=== PATIENT | male | born 1935 | race Caucasian/White ===

== ENCOUNTER 2017-07-28 03:49 | Emergency (ER) | payer MEDICARE ==
[2017-07-28] MEDS ORDERED: ASPIRIN 81 MG TABLET, CHEWABLE PO ONE (03:52)
[2017-07-28 04:01] LABS: ABSOLUTE BASOPHILS # (AUTO) 0.1 10^3/uL (0.0-0.2); ABSOLUTE EOSINOPHILS # (AUTO) 0.2 10^3/uL (0.0-0.6); ABSOLUTE LYMPHOCYTES (AUTO) 1.7 10^3/uL (0.5-4.7); ABSOLUTE MONOCYTES (AUTO) 0.4 10^3/uL (0.1-1.4); ABSOLUTE NEUT (AUTO) 7.2 10^3/uL (1.7-8.2); BASOPHILS % (AUTO) 1.2 % (0-2); EOSINOPHILS % (AUTO) 1.8 % (0-6); HEMATOCRIT 42.2 % (37.9-51.0); HEMOGLOBIN 14.1 g/dL (13.5-17.0); LYMPHOCYTES % (AUTO) 18.3 % (13-45); MEAN CORPUSCULAR HEMOGLOBIN 31.8 pg (27.0-33.4); MEAN CORPUSCULAR HGB CONC 33.5 g/dL (32.0-36.0); MEAN CORPUSCULAR VOLUME 95 fl (80-97); MONOCYTES % (AUTO) 4.1 % (3-13); PLATELET COUNT 222 10^3/uL (150-450); RED BLOOD COUNT 4.44 10^6/uL (4.35-5.55); RED CELL DISTRIBUTION WIDTH 15.8 % (11.5-14.0); SEGMENTED NEUTROPHILS % (AUTO) 74.6 % (42-78); TOTAL CELLS COUNTED % (AUTO) 100 %; WHITE BLOOD COUNT 9.6 10^3/uL (4.0-10.5)
[2017-07-28 04:14] LABS: ALANINE AMINOTRANSFERASE 91 U/L (21-72); ALBUMIN 3.7 g/dL (3.5-5.0); ALKALINE PHOSPHATASE 142 U/L (38-126); ANION GAP 7 (5-19); ASPARTATE AMINO TRANSFERASE 55 U/L (17-59); BILIRUBIN,DIRECT 0.3 mg/dL (0.0-0.4); BILIRUBIN,TOTAL 0.5 mg/dL (0.2-1.3); BLOOD UREA NITROGEN 21 mg/dL (7-20); CALCIUM 9.1 mg/dL (8.4-10.2); CARBON DIOXIDE 29 mmol/L (22-30); CHLORIDE 110 mmol/L (98-107); CREATINE KINASE 56 U/L (55-170); GLUCOSE 114 mg/dL (75-110); POTASSIUM 4.3 mmol/L (3.6-5.0); TOTAL PROTEIN 6.4 g/dL (6.3-8.2)
[2017-07-28 04:25] LABS: CREATINE KINASE MB 1.35 ng/mL (<4.55); TROPONIN I 0.033 ng/mL
--- NOTE | 2017-07-28 04:35 | RADIOLOGY REPORT (SQ) ---
EXAM DESCRIPTION: CHEST SINGLE VIEW CLINICAL HISTORY: cp COMPARISON: None. FINDINGS: Single frontal view of the chest. Atherosclerotic calcification and tortuosity of thoracic aorta. Heart is not enlarged. Calcified granuloma. No lobar consolidation, pneumothorax or pleural effusion. Left shoulder. Degenerative change of the right shoulder. Upper abdominal soft tissues are unremarkable. IMPRESSION: 1. No acute pulmonary process identified.
--- NOTE | 2017-07-28 05:09 | ER Document Report ---
ED Cardiac - General Chief Complaint: Chest Pain Stated Complaint: CHEST PAIN Time Seen by Provider: 07/28/17 04:17 Notes: Patient is an 82-year-old male comes emergency department by EMS for chief complaint of chest pain, he states that he had pain in his chest 3 different times a night, each time it woke him up, the third time it was significantly worse, felt like pressure in the center of his chest that radiated out to his neck and both arms, he became concerned and his gave him 324 mg of aspirin and he came by EMS. He states he is now chest pain-free. He did state that previously when he was waking up that if he got up and sat in a chair he felt better and then when he laid back he felt slightly worse. He denies nausea or vomiting, he had mild shortness of breath with the pain but none currently. He denies any current symptoms. Past medical history includes hypertension, hyperlipidemia, rheumatoid arthritis, TIA, he is on Aggrenox. He denies personal or family history of MT, he had a negative stress test about 5 years ago. - Related Data Allergies/Adverse Reactions: No Known Allergies Allergy (Unverified 07/28/17 04:44) Past Medical History - General Information source: Patient - Social History Smoking Status: Former Smoker Chew tobacco use (# tins/day): No Frequency of alcohol use: None Drug Abuse: None Lives with: Family Family History: Reviewed & Not Pertinent Patient has suicidal ideation: No Patient has homicidal ideation: No - Past Medical History Cardiac Medical History: Reports: Hx Hypercholesterolemia, Hx Hypertension Endocrine Medical History: Reports: Hx Hypothyroidism Renal/ Medical History: Denies: Hx Peritoneal Dialysis GI Medical History: Reports: Hx Hiatal Hernia Musculoskeltal Medical History: Reports Hx Arthritis - RA - Immunizations Immunizations up to date: Yes Hx Diphtheria, Pertussis, Tetanus Vaccination: Yes Review of Systems - Review of Systems Constitutional: No symptoms reported EENT: No symptoms reported Cardiovascular: See HPI Respiratory: No symptoms reported Gastrointestinal: No symptoms reported Genitourinary: No symptoms reported Male Genitourinary: No symptoms reported Musculoskeletal: No symptoms reported Skin: No symptoms reported Hematologic/Lymphatic: No symptoms reported Neurological/Psychological: No symptoms reported Physical Exam - Vital signs Vitals: Resp Pulse Ox 19 97 07/28/17 03:55 07/28/17 03:55 Interpretation: Normal - General General appearance: Appears well In distress: None - HEENT Head: Normocephalic, Atraumatic Eyes: Normal Pupils: PERRL - Respiratory Respiratory status: No respiratory distress Chest status: Nontender Breath sounds: Normal Chest palpation: Normal - Cardiovascular Rhythm: Regular. No: Tachycardia Heart sounds: Normal auscultation, S1 appreciated, S2 appreciated Murmur: Yes - 1/6 heard best at LSB Normal capillary refill: Yes - Abdominal Inspection: Normal Distension: No distension Bowel sounds: Normal Tenderness: Nontender. No: Tender, Guarding Organomegaly: No organomegaly - Back Back: Normal, Nontender. No: Tender - Extremities General upper extremity: Normal inspection, Nontender, Normal color, Normal ROM , Normal temperature General lower extremity: Normal inspection, Nontender, Normal color, Normal ROM , Normal temperature, Normal weight bearing. No: Helen's sign - Neurological Neuro grossly intact: Yes Cognition: Normal Orientation: AAOx4 Axel Coma Scale Eye Opening: Spontaneous [place] Coma Scale Verbal: Oriented Axel Coma Scale Motor: Obeys Commands Axel Coma Scale Total: 15 Speech: Normal Motor strength normal: LUE, RUE, LLE, RLE Sensory: Normal - Psychological Associated symptoms: Normal affect, Normal mood - Skin Skin Temperature: Warm Skin Moisture: Dry Skin Color: Normal Course - Re-evaluation Re-evalutation: EKG sinus rhythm with no T-wave inversions or ST segment changes in consecutive leads. Normal axis, no bundle branch block, SD interval of 176, QTC of 441. Chest x-ray unremarkable, CBC, chemistry generally unremarkable. Initial troponin is indeterminate at 0.033. Patient's blood pressure is slightly elevated, however he is currently chest pain-free, denies headache, denies any complaints. Discussed with Dr. Fu. Troponin cycled, unfortunately this is doubling, new troponin is 0.08. Discussed with Dr. Fu. Patient is currently chest pain-free, troponin has not reached a migraine she had, however because of doubling troponin with risk factors, age, and story, she recommends transfer to tertiary center for interventional cardiology. I discussed with patient and , patient's investigative shopper is Dr. Marks at [facility]. They request [facility] transfer. 07/28/17 07:00 Spoke with [facility] transfer center, pending call back. 04/06/18 07:[address] Rodríguez, patient will be accepted for transfer. 07/28/17 07:35 Introduced to Laura Diaz PA-C at bedside. - Vital Signs Vital signs: Temp Pulse Resp BP Pulse Ox 18 206/78 H 99 07/28/17 07:01 07/28/17 07:01 07/28/17 07:01 - Laboratory Result Diagrams: 07/28/17 03:30 07/28/17 03:30 Laboratory results interpreted by me: 07/28/17 07/28/17 03:30 03:30 RDW 15.8 H Sodium 146.0 H Chloride 110 H BUN 21 H Glucose 114 H ALT 91 H Alkaline Phosphatase 142 H Discharge - Discharge Clinical Impression: Elevated troponin Chest pain Qualifiers: Chest pain type: unspecified Qualified Code(s): R07.9 - Chest pain, unspecified Condition: Stable Disposition: [facility] Referrals: MEMO ENGLISH III, MD [Primary Care Provider] - Follow up as needed
[2017-07-28] MEDS ORDERED: ATORVASTATIN CALCIUM 10 MG TABLET PO ONE (07:27)
[2017-07-28] MEDS ORDERED: METOPROLOL TARTRATE 25 MG TABLET PO ONE (07:27)
[2017-07-28] MEDS ORDERED: ENOXAPARIN SODIUM INJ 80 MG/0.8 ML DISP.SYRIN SUBCUT SCH (08:00)
--- NOTE | 2017-07-28 10:27 | EKG REPORT ---
SEVERITY:- NORMAL ECG - SINUS RHYTHM : Confirmed by: Chayo Saldana 28-Jul-2017 10:26:50
[2017-07-28 12:48] VITALS: BP 185/76
== END 2017-07-28 12:50 | disposition short-term general hospital (02) ==
LOC: ER 03:49
DX: R79.89 Other specified abnormal findings of blood chemistry (principal); R07.9 Chest pain, unspecified; E03.9 Hypothyroidism, unspecified; I10 Essential (primary) hypertension; Z87.891 Personal history of nicotine dependence
CPT/HCPCS: 93005; 99285; 96372; 36415; 82553; 82550; 85025; 80053; 84484; 71045; 93010; J1650; A9270 ×2

== ENCOUNTER 2018-12-04 01:14 | Inpatient (IN) | payer MEDICARE ==
[2018-12-04] MEDS ORDERED: CEFEPIME INJ 1 GM VIAL IM ONE (01:28)
[2018-12-04] MEDS ORDERED: VANCOMYCIN HCL INJ 1000 MG VIAL IV ONE (01:28)
[2018-12-04] MEDS ORDERED: RINGERS SOLUTION,LACTATED 1,000 ML IV ONE ×2 (01:28→03:00)
--- NOTE | 2018-12-04 01:36 | ER Document Report ---
ED General - General Chief Complaint: Altered Mental Status Stated Complaint: ALTERED MENTAL STATUS Time Seen by Provider: 12/04/18 01:22 Primary Care Provider: MEMO ENGLISH III, MD [Primary Care Provider] - Follow up as needed - HPI Notes: Note history is limited given patient's underlying clinical condition and confusion. All history comes via the patient's . 83-year-old male complicated history including recent CEA done on the right side at outside facility as well as history of bladder CA being treated with intravesicular BCG. Apparently woke up this morning overall felt ill and genera lly weak. According his he has been confused, at times hallucinating about people in the room. EMS was called this evening, noted to have a fever and a prehospital lactate over 6. He was hospitalized couple weeks ago at an outside facility for a CEA. He has had some increased cough. May was used to place BCG in his bladder last week. No falls or injury. No antecedent chest pain. Remainder history is limited by clinical condition - Related Data Allergies/Adverse Reactions: No Known Allergies Allergy (Unverified 07/28/17 04:44) Past Medical History - General Information source: Relative - Social History Smoking Status: Unknown if Ever Smoked Lives with: Spouse/Significant other Family History: Reviewed & Not Pertinent - Medical History Medical History: Other - Includes prior stroke, recent CEA, bladder cancer - Past Medical History Cardiac Medical History: Reports: Hx Hypercholesterolemia, Hx Hypertension Endocrine Medical History: Reports: Hx Hypothyroidism Renal/ Medical History: Denies: Hx Peritoneal Dialysis GI Medical History: Reports: Hx Hiatal Hernia Musculoskeletal Medical History: Reports Hx Arthritis - RA - Immunizations Immunizations up to date: Yes Hx Diphtheria, Pertussis, Tetanus Vaccination: Yes Review of Systems - Review of Systems -: Yes ROS unobtainable due to patient's medical condition Physical Exam - Vital signs Vitals: Temp Pulse Resp BP Pulse Ox 104.4 F H 105 H 29 H 136/85 H 95 12/04/18 01:16 12/04/18 01:16 12/04/18 01:16 12/04/18 01:16 12/04/18 01:16 - Notes Notes: General: Well developed . Chronically ill in appearance HEENT: Normocephalic, atraumatic. Pupils equal round reactive to light. No JVD. Mucosa Chest: No trauma. Respiratory: Air exchange, coarse Cardiac: Regular rhythm. Abdomen: Soft, benign. Nondistended. Nontender. Back: No asymmetry or gross abnormality. Motor: Decreased tone and power, symmetric Neurologic: Eyes open, basic commands, moves all 4 extremities spontaneously. DTRs absent bilaterally. Does not cooperate with finer neurologic testing Vascular: Well perfused. Normal peripheral pulses. Skin: No petechiae or purpura. Course - Re-evaluation Re-evalutation: 12/04/18 01:35 This is an ill-appearing 83-year-old male presents with prehospital fever and elevated lactate likely sepsis syndrome/severe sepsis. Source is unclear at this time. Will initiate resuscitation, broad laboratory evaluation, x-ray, EKG, reevaluate. Patient received Rocephin via EMS. However, he is at substantial risk for healthcare associated infection I will treat him empirically with cefepime and vancomycin. 12/04/18 02:59 Labs reviewed. CBC unremarkable with the exception of neutrophilia and anemia. Most recent comparison is from July 2017 with hemoglobin was over 14. Creatinine is also increased to 1.76 over his baseline from July. Lactate is unremarkable at 2.1. Urinalysis consistent with infection with pyuria and bacteriuria. Chest x-rays evaluated, shows possible patchy infiltrates in the bases bilaterally. Patient is stated covered with broad-spectrum antibiotics to cover for healt hcare associated infection. He meets criteria for urosepsis given his underlying endorgan dysfunction. Hemoccult stools pending. He is admitted to the hospital service for continued evaluation resuscitation. Blood pressures been stable throughout his ED course. Heart rate is decreasing. - Vital Signs Vital signs: Temp Pulse Resp BP Pulse Ox 104.4 F H 105 H 18 125/53 L 99 12/04/18 01:16 12/04/18 01:16 12/04/18 01:54 12/04/18 01:54 12/04/18 01:54 - Laboratory Result Diagrams: 12/04/18 01:20 12/04/18 01:20 Laboratory results interpreted by me: 12/04/18 12/04/18 12/04/18 01:20 01:20 01:45 RBC 2.64 L Hgb 8.0 L Hct 23.5 L RDW 16.6 H Seg Neutrophils % 83.4 H Lymphocytes % 8.9 L Sodium 132.8 L BUN 29 H Creatinine 1.74 H Est GFR ( Amer) 46 L Est GFR (Non-Af Amer) 38 L Glucose 164 H POC Glucose Calcium 8.1 L Total Protein 5.8 L Albumin 2.9 L Urine Protein 30 H Urine Blood SMALL H Ur Leukocyte Esterase LARGE H 12/04/18 01:59 RBC Hgb Hct RDW Seg Neutrophils % Lymphocytes % Sodium BUN Creatinine Est GFR ( Amer) Est GFR (Non-Af Amer) Glucose POC Glucose 173 H Calcium Total Protein Albumin Urine Protein Urine Blood Ur Leukocyte Esterase - EKG Interpretation by Me EKG shows normal: Sinus rhythm, Intervals Rate: Tachycardia Additional EKG results interpreted by me: 12/04/18 01:36 No ischemic changes Critical Care Note - Critical Care Note Total time excluding time spent on procedures (mins): 35 Comments: Inclusive of resuscitation of severe sepsis, frequent re-evaluations, interpret ation of labs and radiograph studies and discussing the case with the admitting doctor. Discharge - Discharge Clinical Impression: Sepsis Qualifiers: Sepsis type: sepsis due to unspecified organism Sepsis acute organ dysfunction status: with acute organ dysfunction Severe sepsis acute organ dysfunction type: acute renal failure Acute renal failure type: unspecified Severe sepsis shock status: without septic shock Qualified Code(s): A41.9 - Sepsis, unspecified organism Condition: Serious Disposition: ADMITTED INPATIENT Admitting Provider: Jimmy (Hospitalist) Unit Admitted: Telemetry Referrals: MEMO ENGLISH III, MD [Primary Care Provider] - Follow up as needed
[2018-12-04 01:44] LABS: ABSOLUTE BASOPHILS # (AUTO) 0.1 10^3/uL (0.0-0.2); ABSOLUTE EOSINOPHILS # (AUTO) 0.1 10^3/uL (0.0-0.6); ABSOLUTE LYMPHOCYTES (AUTO) 0.5 10^3/uL (0.5-4.7); ABSOLUTE MONOCYTES (AUTO) 0.2 10^3/uL (0.1-1.4); ABSOLUTE NEUT (AUTO) 4.4 10^3/uL (1.7-8.2); BASOPHILS % (AUTO) 1.3 % (0-2); EOSINOPHILS % (AUTO) 2.5 % (0-6); HEMATOCRIT 23.5 % (37.9-51.0); LYMPHOCYTES % (AUTO) 8.9 % (13-45); MEAN CORPUSCULAR HEMOGLOBIN 30.2 pg (27.0-33.4); MEAN CORPUSCULAR HGB CONC 33.9 g/dL (32.0-36.0); MEAN CORPUSCULAR VOLUME 89 fl (80-97); MONOCYTES % (AUTO) 3.9 % (3-13); PLATELET COUNT 276 10^3/uL (150-450); RED BLOOD COUNT 2.64 10^6/uL (4.35-5.55); RED CELL DISTRIBUTION WIDTH 16.6 % (11.5-14.0); SEGMENTED NEUTROPHILS % (AUTO) 83.4 % (42-78); TOTAL CELLS COUNTED % (AUTO) 100 %; WHITE BLOOD COUNT 5.3 10^3/uL (4.0-10.5)
[2018-12-04 01:54] LABS: INTERNATIONAL RATION (INR) 1.09; PROTHROMBIN TIME 14.2 SEC (11.4-15.4)
[2018-12-04 02:03] LABS: VENOUS BLOOD BASE EXCESS -0.3 mmol/L; VENOUS BLOOD HCO3 24.2 mmol/L (20-32); VENOUS BLOOD PCO2 39.2 mmHg (35-63); VENOUS BLOOD PH 7.41 (7.30-7.42)
[2018-12-04 02:05] LABS: ALBUMIN 2.9 g/dL (3.5-5.0); ALKALINE PHOSPHATASE 80 U/L (38-126); ANION GAP 10 (5-19); ASPARTATE AMINO TRANSFERASE 58 U/L (17-59); BILIRUBIN,DIRECT 0.3 mg/dL (0.0-0.4); BILIRUBIN,TOTAL 0.8 mg/dL (0.2-1.3); BLOOD UREA NITROGEN 29 mg/dL (7-20); CALCIUM 8.1 mg/dL (8.4-10.2); CARBON DIOXIDE 25 mmol/L (22-30); CHLORIDE 98 mmol/L (98-107); GLUCOSE 164 mg/dL (75-110); POTASSIUM 3.9 mmol/L (3.6-5.0); TOTAL PROTEIN 5.8 g/dL (6.3-8.2)
[2018-12-04 02:08] LABS: APPEARANCE,URINE SLIGHTLY-CLOUDY; BILIRUBIN,URINE NEGATIVE (NEGATIVE); COLOR,URINE YELLOW; GLUCOSE, URINE NEGATIVE (NEGATIVE); KETONES,URINE NEGATIVE (NEGATIVE); LEUKOCYTE ESTERASE,URINE LARGE (NEGATIVE); NITRITE,URINE NEGATIVE (NEGATIVE); PROTEIN,URINE 30 mg/dL (NEGATIVE); URINE SPECIFIC GRAVITY 1.014; UROBILINOGEN,URINE NEGATIVE mg/dL (<2.0)
[2018-12-04] MEDS ORDERED: ACETAMINOPHEN 325 MG TABLET PO ONE (02:12)
--- NOTE | 2018-12-04 02:29 | RADIOLOGY REPORT (SQ) ---
EXAM DESCRIPTION: XR CHEST 1 VIEW COMPLETED DATE/TME: 12/04/2018 01:29 CLINICAL HISTORY: 83 years, Male, Fever COMPARISON: None. NUMBER OF VIEWS: TECHNIQUE: LIMITATIONS: None. FINDINGS: There may be patchy infiltrate at the lung bases bilaterally, raising the possibility of pneumonia. There is emphysema. The heart is normal in size. Pulmonary vascularity appears normal. There is evidence of prior thoracic surgery. There are atherosclerotic changes and tortuosity of the thoracic aorta. IMPRESSION: Possible bibasilar pneumonia. Emphysema. copyright 2010 [employer]- All Rights Reserved
[2018-12-04] MEDS ORDERED: AZITHROMYCIN INJ 500 MG VIAL IV ONE (02:31)
[2018-12-04] MEDS ORDERED: ONDANSETRON HCL INJ/PF 4 MG/2 ML SDV IV PRN (03:03)
[2018-12-04] MEDS ORDERED: MAG HYDROX/AL HYDROX/SIMETH SUSP 30 ML UDCUP PO PRN (03:03)
[2018-12-04] MEDS ORDERED: MAGNESIUM HYDROXIDE SUSP 30 ML UDCUP PO PRN (03:03)
[2018-12-04] MEDS ORDERED: DEXTROSE 40% GEL 15 GM TUBE PO PRN ×2 (03:49)
[2018-12-04] MEDS ORDERED: DEXTROSE 50%-WATER 25 GM/50 ML DISP.SYRIN IV PRN ×2 (03:49)
[2018-12-04] MEDS ORDERED: GLUCAGON,HUMAN RECOMB 1 MG INJ IM PRN (03:49)
[2018-12-04] MEDS ORDERED: LORAZEPAM INJ 2 MG/1 ML VIAL IV PRN (03:54)
[2018-12-04] MEDS ORDERED: CHLORPROMAZINE HCL INJ 25 MG/1 ML AMPULE IV PRN (03:54)
[2018-12-04 04:57] LABS: CREATINE KINASE MB 1.3 ng/mL (<4.55)
[2018-12-04 05:09] LABS: TROPONIN I 0.24 ng/mL
[2018-12-04] MEDS ORDERED: MEROPENEM 1 GM VIAL IV PRN (06:00)
[2018-12-04] MEDS ORDERED: MEROPENEM 1 GM VIAL ONE (06:05)
[2018-12-04] MEDS ORDERED: CHLORPROMAZINE HCL INJ 25 MG/1 ML AMPULE ONE (06:06)
--- NOTE | 2018-12-04 06:09 | PDOC H&P ---
History of Present Illness Admission Date/PCP: 12/04/2018 03:11 MEMO ENGLISH III, MD Patient complains of: Fever History of Present Illness: SANTY QUEZADA is a 83 year old male who presented to the emergency room with acute fever. Patient's indicates that he woke up feeling weak and suffering from malaise on the morning of 12/03/2018. He continued not feeling well throughout the day and became gradually more confused, experienced occasional coughing and and seemed to be hallucinating by the evening. EMS was called and found patient to have a fever of 102.8 F and a prehospital rapid lactic acid level of greater than 6. The patient is confused/delirious secondary to his acute illness and unable to participate in his medical history at this time. The denies prior similar episodes. She offers the recent history of surgery performed in [facility] (right carotid endarterectomy) approximately 2 weeks ago and a treatment for bladder cancer involving the installation of BCG in his bladder via May catheter last week as to possible sources of infection that may have contributed to his current status. In the emergency room he was found to have a normal white blood count, a normal serum lactate, an anemia with a hemoglobin of 8.0, an elevated creatinine at 1.74 (approximately double his baseline), a urinalysis consistent with bacterial cystitis and a chest x-ray showing a possible pneumonia. Patient was subsequently admitted to the hospital for further evaluation treatment. Past Medical History Cardiac Medical History: Reports: Atrial Fibrillation, Coronary Artery Disease, Hyperlipidema, Hypertension, Peripheral Vascular Disease Denies: Myocardial Infarction Pulmonary Medical History: Denies: Asthma, Chronic Obstructive Pulmonary Disease (COPD) EENT Medical History: Denies: Cataracts, Ears - Hearing aids, Nose - Allergic rhinitis Neurological Medical History: Reports: Ischemic CVA Denies: Hemorrhagic CVA, Multiple Sclerosis, Seizures Endocrine Medical History: Reports: Hypothyroidism Denies: Diabetes Mellitus Type 1, Diabetes Mellitus Type 2, Hyperthyroidism, Obesity Renal/ Medical History: Reports: Other - Urinary bladder cancer, benign prostatic hypertrophy Denies: Chronic Kidney Disease, Nephrolithiasis Malignancy Medical History: Reports: Other - Urinary bladder cancer GI Medical History: Reports: Hiatal Hernia Denies: Cirrhosis, Crohn's Disease, Diverticulitis, Hepatitis, Ulcerative Colitis Musculoskeltal Medical History: Reports: Arthritis - RA Denies: Fibromyalgia, Gout Skin Medical History: Denies: Eczema, Psoriasis Psychiatric Medical History: Reports: Tobacco Dependency Denies: Alcohol Dependency, Substance Abuse Traumatic Medical History: Reports: None Hematology: Reports: Bleeding Tendencies - Subcutaneous bleeding and bruising on Plavix Denies: Anemia Infectious Medical History: Reports: None Past Surgical History Past Surgical History: Reports: Cardiac Catheterization, Carotid Endarterectomy, Coronary Artery Bypass Graft - With ablation for correction of atrial fibril lation, Orthopedic Surgery - Surgery for spinal stenosis, Other - Bladder surgery for cancer plus TURP Social History Information Source: Relative Lives with: Spouse/Significant other Smoking Status: Former Smoker Frequency of Alcohol Use: None Hx Recreational Drug Use: No Drugs: None Hx Prescription Drug Abuse: No - Advance Directive Resuscitation Status: Full Code Surrogate healthcare decision maker:: Debbie Quezada Family History Family History: Arthritis, CAD, Hypertension, Other - Alzheimer's disease. denies: DM, Malignancy Parental Family History Reviewed: Yes Children Family History Reviewed: No Sibling(s) Family History Reviewed.: Yes Medication/Allergy Allergies/Adverse Reactions: Sulfa (Sulfonamide Antibiotics) Allergy (Verified 12/04/18 05:23) Review of Systems ROS unobtainable: Due to mental status - Confusion/delirium secondary to fever and acute illness Physical Exam Vital Signs: Temp Pulse Resp BP Pulse Ox 104.4 F H 105 H 18 125/53 L 99 12/04/18 01:16 12/04/18 01:16 12/04/18 01:54 12/04/18 01:54 12/04/18 01:54 Intake & Output 12/02/18 12/03/18 12/04/18 23:59 23:59 23:59 Weight 65.2 kg General appearance: PRESENT: no acute distress, other - Confused and delirious Head exam: PRESENT: atraumatic, normocephalic Eye exam: PRESENT: conjunctiva pink. ABSENT: conjunctival injection, scleral icterus Ear exam: PRESENT: normal external ear exam. ABSENT: bleeding, drainage Mouth exam: PRESENT: dry mucosa, neck supple Neck exam: ABSENT: thyromegaly, tracheal deviation Respiratory exam: PRESENT: clear to auscultation estela, symmetrical, unlabored Cardiovascular exam: PRESENT: RRR. ABSENT: clicks, gallop, rubs Pulses: PRESENT: normal radial pulses, normal dorsalis pedis pul Vascular exam: PRESENT: normal capillary refill. ABSENT: pallor GI/Abdominal exam: PRESENT: normal bowel sounds, soft. ABSENT: tenderness Rectal exam: PRESENT: deferred Extremities exam: ABSENT: joint swelling, pedal edema Musculoskeletal exam: ABSENT: deformity, dislocation, tenderness Neurological exam: PRESENT: altered - Confused and delirious, CN II-XII grossly intact - Limited exam. ABSENT: motor sensory deficit - To gross exam Psychiatric exam: PRESENT: other - Confused and delirious Skin exam: PRESENT: dry, intact, warm. ABSENT: jaundice, rash, urticaria Results Laboratory Results: 12/04/18 01:20 12/04/18 01:20 12/04/18 12/04/18 12/04/18 01:20 01:20 01:20 WBC 5.3 RBC 2.64 L Hgb 8.0 L Hct 23.5 L MCV 89 MCH 30.2 MCHC 33.9 RDW 16.6 H Plt Count 276 Seg Neutrophils % 83.4 H Lymphocytes % 8.9 L Monocytes % 3.9 Eosinophils % 2.5 Basophils % 1.3 Absolute Neutrophils 4.4 Absolute Lymphocytes 0.5 Absolute Monocytes 0.2 Absolute Eosinophils 0.1 Absolute Basophils 0.1 VBG pH VBG pCO2 VBG HCO3 VBG Base Excess Sodium 132.8 L Potassium 3.9 Chloride 98 Carbon Dioxide 25 Anion Gap 10 BUN 29 H Creatinine 1.74 H Est GFR ( Amer) 46 L Est GFR (Non-Af Amer) 38 L Glucose 164 H Lactic Acid 2.1 Calcium 8.1 L Total Bilirubin 0.8 AST 58 Alkaline Phosphatase 80 Total Protein 5.8 L Albumin 2.9 L Urine Color Urine Appearance Urine pH Ur Specific [place] Urine Protein Urine Glucose (UA) Urine Ketones Urine Blood Urine Nitrite Ur Leukocyte Esterase Urine WBC (Auto) Urine RBC (Auto) 12/04/18 12/04/18 01:20 01:45 WBC RBC Hgb Hct MCV MCH MCHC RDW Plt Count Seg Neutrophils % Lymphocytes % Monocytes % Eosinophils % Basophils % Absolute Neutrophils Absolute Lymphocytes Absolute Monocytes Absolute Eosinophils Absolute Basophils VBG pH 7.41 VBG pCO2 39.2 VBG HCO3 24.2 VBG Base Excess -0.3 Sodium Potassium Chloride Carbon Dioxide Anion Gap BUN Creatinine Est GFR ( Amer) Est GFR (Non-Af Amer) Glucose Lactic Acid Calcium Total Bilirubin AST Alkaline Phosphatase Total Protein Albumin Urine Color YELLOW Urine Appearance SLIGHTLY-CLOUDY Urine pH 5.0 Ur Specific [place] 1.014 Urine Protein 30 H Urine Glucose (UA) NEGATIVE Urine Ketones NEGATIVE Urine Blood SMALL H Urine Nitrite NEGATIVE Ur Leukocyte Esterase LARGE H Urine WBC (Auto) >182 Urine RBC (Auto) 7 Impressions: Chest X-Ray 12/04/18 01:29 IMPRESSION: Possible bibasilar pneumonia. Emphysema. copyright 2010 [employer]- All Rights Reserved Assessment and Plan - Diagnosis (1) SIRS (systemic inflammatory response syndrome) Is this a current diagnosis for this admission?: Yes Plan: Patient has tachycardia and fever with a source of infection in the urinary tract. His initial lactic acid is normal and he shows no evidence of shock. His initial white blood count is normal. Patient will be observed closely for possible signs of sepsis during his course of therapy. Blood and urine cultures are pending. Antibiotic therapy will be broad-spectrum for sepsis coverage utilizing vancomycin, azithromycin and meropenem. Daily CBCs, metabolic profiles and magnesium levels will be obtained. (2) Urinary tract infection Qualifiers: Urinary tract infection type: acute cystitis Hematuria presence: without hematuria Qualified Code(s): N30.00 - Acute cystitis without hematuria Is this a current diagnosis for this admission?: Yes Plan: Patient's urinary tract infection will be treated with meropenem 1 g IV every 8 hours until culture results are available to allow for organisms specific directed therapy with a narrower scope. (3) Acute nontraumatic kidney injury Is this a current diagnosis for this admission?: Yes Plan: Patient be treated with IV fluid and supportive as well as symptomatic cares. Daily metabolic profiles will be monitored as well as magnesium levels. (4) Fever Qualifiers: Fever type: unspecified Qualified Code(s): R50.9 - Fever, unspecified Is this a current diagnosis for this admission?: Yes Plan: Patient's fever will be treated with Tylenol 650 mg p.o. every 4 hours on a as needed basis for temperature greater than 101.5 F. (5) Acute delirium Is this a current diagnosis for this admission?: Yes Plan: Patient's delirium will be treated with symptomatic and supportive cares. He will receive IV fluids and fever will be controlled with Tylenol. His infection be treated with antibiotic therapy and he will have available Ativan 0.5 mg IV every 4 hours on a as needed basis for anxiety and Thorazine 25 mg IV every 8 hours on a as needed basis for severe restlessness, agitation or hallucinations. - Time Time Spent with patient: 25-34 minutes Medications reviewed and adjusted accordingly: Yes Anticipated discharge: Home - Inpatient Certification Based on my medical assessment, after consideration of the patient's comorbidities, presenting symptoms, or acuity I expect that the services needed warrant INPATIENT care.: Yes I certify that my determination is in accordance with my understanding of Medicare's requirements for reasonable and necessary INPATIENT services [42 CFR 412.3e].: Yes Medical Necessity: Need Close Monitoring Due to Risk of Patient Decompensation, Need For Continuous Telemetry Monitoring, Need for IV Antibiotics, Risk of Complication if Not Cared For in Hospital
--- NOTE | 2018-12-04 06:11 | ADVANCED CARE ---
- Diagnosis (1) SIRS (systemic inflammatory response syndrome) Diagnosis Current: Yes (2) Urinary tract infection Diagnosis Current: Yes (3) Acute nontraumatic kidney injury Diagnosis Current: Yes (4) Fever Diagnosis Current: Yes (5) Acute delirium Diagnosis Current: Yes Attendance: Myself, the patient and his Debbie Quezada. Resuscitation Status: Full Code Discussion: Patient's indicates that he wishes to continue to be a full code resuscitation status patient at this time. Patient has named Debbie Quezada as his designated surrogate medical decision-maker. Care Planning Goals: 1. Patient is full CODE STATUS for this hospitalization. 2. Debbie Quezada is the patient's designated surrogate medical decision- maker. Document(s) Completed: Following information will be entered into the patient's permanent medical record via this EMR entry: 1. Patient is full CODE STATUS for this hospitalization. 2. Debbie Quezada is the patient's designated surrogate medical decision- maker. Time Spent: 18 minutes
[2018-12-04] MEDS: MEROPENEM 1 GM in NORMAL SALINE 50 ML IV SCH ×2 (06:49→14:10)
[2018-12-04] MEDS: RINGERS SOLUTION,LACTATED 1,000 ML IV PRN ×3 (06:50→23:12)
[2018-12-04] MEDS: HEPARIN SOD (PORCINE) 5,000 UNIT/ML 1 ML VIAL SUBCUT SCH ×2 (06:50→14:10)
[2018-12-04 06:52] LABS: FREE T3 2.11 pg/mL (2.77-5.27); FREE T4 (FREE THYROXINE) 1.66 ng/dL (0.78-2.19)
[2018-12-04] MEDS: INSULIN LISPRO 100 UNIT/ML 3 ML VIAL SUBCUT SCH ×4 (08:00→21:26)
[2018-12-04 08:14] LABS: CREATINE KINASE MB 3.46 ng/mL (<4.55)
[2018-12-04 08:19] LABS: TROPONIN I 1.84 ng/mL
[2018-12-04] MEDS: ACETYLCYSTEINE 20% SOLN 800 MG/4 ML VIAL.NEB NEB SCH ×2 (08:45→20:20)
[2018-12-04] MEDS: LEVALBUTEROL HCL NEB 1.25 MG/3 ML AMPUL NEB SCH ×2 (08:46→16:12)
--- NOTE | 2018-12-04 09:36 | EKG REPORT ---
SEVERITY:- ABNORMAL ECG - SINUS TACHYCARDIA ARTIFACTS NOTED : Confirmed by: Chayo Saldana 04-Dec-2018 09:35:29
[2018-12-04] MEDS: DOCUSATE SODIUM 100 MG CAPSULE PO SCH ×2 (09:38→17:21)
[2018-12-04] MEDS: FAMOTIDINE 20 MG TABLET PO SCH ×2 (09:38→21:30)
[2018-12-04] MEDS ORDERED: CEFEPIME 1 GM/D5W RTU 1 GM/50 ML RTUPB IV SCH (10:00)
[2018-12-04] MEDS ORDERED: VANCOMYCIN HCL INJ 1000 MG VIAL IV SCH (10:00)
--- NOTE | 2018-12-04 11:29 | EKG REPORT ---
SEVERITY:- ABNORMAL ECG - SINUS TACHYCARDIA ARTIFACTS NOTED : Confirmed on behalf of: Chayo Saldana 04-Dec-2018 11:29:29
--- NOTE | 2018-12-04 14:38 | RADIOLOGY REPORT (SQ) ---
EXAM DESCRIPTION: CT CHEST WITHOUT COMPLETED DATE/TIME: 12/04/2018 1:40 pm REASON FOR STUDY: further assess infiltrates on CXR,PNA vs ?congest COMPARISON: None. TECHNIQUE: CT scan performed of the chest without intravenous contrast. Images reviewed with lung, soft tissue and bone windows. Reconstructed coronal and sagittal MPR images reviewed. All images st ored on PACS. All CT scanners at this facility use dose modulation, iterative reconstruction, and/or weight based d osing when appropriate to reduce radiation dose to as low as reasonably achievable (ALARA). [facility]: Dose Right [facility]: CareDose [facility]: Dose Right [facility]: Teradose 4D [facility]: Smart [employer] RADIATION DOSE: CT Rad equipment meets quality standard of care and radiation dose reduction techniq ues were employed. CTDIvol: 10.8 mGy. DLP: 395 mGy-cm. mGy. LIMITATIONS: No technical limitations. FINDINGS: LUNGS AND PLEURA: Minimal pleural effusions. Ground-glass opacification in both lungs to a moderate degree. There is increased opacification in the right lung posteriorly on image 48. Ther e is mild pulmonary fibrosis. HILAR AND MEDIASTINAL STRUCTURES: There are nonspecific mediastinal nodes. No true adenopathy. HEART AND VASCULAR STRUCTURES: No aneurysm. No pericardial effusion. Prior CABG. UPPER ABDOMEN: No significant findings. Limited exam. THYROID AND OTHER SOFT TISSUES: No masses. No adenopathy. BONES: Mild scoliosis. HARDWARE: Sternotomy wires. Heart valve. OTHER: No other significant findings. IMPRESSION: Pulmonary fibrosis. UIP pattern. Ground-glass opacification in each lung suggesting ch ronic interstitial changes. Cannot exclude limited pneumonia in the right lower lobe. Small pleural effusions. TECHNICAL DOCUMENTATION: JOB ID: [id number] Quality ID # [id number]: Final reports with documentation of one or more dose reduction techniques (e.g., Au tomated exposure control, adjustment of the mA and/or kV according to patient size, use of iterative reconstruction technique) 2010 [employer]- All Rights Reserved Reading location - IP/workstation name: [email or web address]
[2018-12-04 15:13] LABS: ANION GAP 5 (5-19); BLOOD UREA NITROGEN 23 mg/dL (7-20); CARBON DIOXIDE 29 mmol/L (22-30); CHLORIDE 102 mmol/L (98-107); GLUCOSE 98 mg/dL (75-110); POTASSIUM 3.9 mmol/L (3.6-5.0)
[2018-12-04 15:46] LABS: CREATINE KINASE MB 4.71 ng/mL (<4.55); TROPONIN I 1.28 ng/mL
[2018-12-04] MEDS: ACETAMINOPHEN 325 MG TABLET PO PRN (19:00)
[2018-12-04] MEDS: LEVALBUTEROL HCL NEB 0.63 MG/3 ML AMPUL NEB PRN (20:21)
[2018-12-04] MEDS: CEFEPIME 1 GM/D5W RTU 1 GM/50 ML RTUPB IV SCH (21:29)
[2018-12-04] MEDS: ATORVASTATIN CALCIUM 40 MG TABLET PO SCH (21:29)
[2018-12-04] MEDS: ASPIRIN 81 MG TABLET, CHEWABLE PO SCH (21:31)
[2018-12-04] MEDS ORDERED: ENOXAPARIN SODIUM INJ 40 MG/0.4 ML DISP.SYRIN SUBCUT SCH (22:00)
[2018-12-04] MEDS: VANCOMYCIN HCL 1,250 MG in DEXTROSE 5%-WATER 250 ML IV SCH (23:15)
[2018-12-05] MEDS: LEVALBUTEROL HCL NEB 1.25 MG/3 ML AMPUL NEB SCH ×3 (00:23→15:51)
[2018-12-05] MEDS: LEVALBUTEROL HCL NEB 0.63 MG/3 ML AMPUL NEB PRN ×2 (02:37→20:26)
[2018-12-05] MEDS ORDERED: AZITHROMYCIN INJ 500 MG VIAL IV SCH (06:00)
[2018-12-05 07:48] LABS: HEMATOCRIT 20.9 % (37.9-51.0); MEAN CORPUSCULAR HEMOGLOBIN 29.9 pg (27.0-33.4); MEAN CORPUSCULAR HGB CONC 33.9 g/dL (32.0-36.0); MEAN CORPUSCULAR VOLUME 88 fl (80-97); PLATELET COUNT 240 10^3/uL (150-450); RED BLOOD COUNT 2.37 10^6/uL (4.35-5.55); RED CELL DISTRIBUTION WIDTH 16.7 % (11.5-14.0); RETICULOCYTE COUNT (AUTO) 5.92 % (0.66-2.85); WHITE BLOOD COUNT 4.9 10^3/uL (4.0-10.5)
[2018-12-05 07:50] LABS: HEMOGLOBIN 7.1 g/dL (13.5-17.0)
[2018-12-05] MEDS ORDERED: AZITHROMYCIN 500 MG in DEXTROSE 5%-WATER 250 ML IV SCH (08:00)
[2018-12-05 08:07] LABS: ANION GAP 7 (5-19); BLOOD UREA NITROGEN 21 mg/dL (7-20); CARBON DIOXIDE 28 mmol/L (22-30); CHLORIDE 100 mmol/L (98-107); GLUCOSE 92 mg/dL (75-110); IRON(TIBC) 15.8 ug/dL (49-181); POTASSIUM 4.6 mmol/L (3.6-5.0)
[2018-12-05] MEDS: ACETYLCYSTEINE 20% SOLN 800 MG/4 ML VIAL.NEB NEB SCH ×2 (08:07→20:26)
[2018-12-05] MEDS: INSULIN LISPRO 100 UNIT/ML 3 ML VIAL SUBCUT SCH ×4 (08:08→21:04)
[2018-12-05] MEDS: FAMOTIDINE 20 MG TABLET PO SCH ×2 (09:59→21:05)
[2018-12-05] MEDS: ASPIRIN 81 MG TABLET, CHEWABLE PO SCH (09:59)
[2018-12-05] MEDS: DOCUSATE SODIUM 100 MG CAPSULE PO SCH ×2 (09:59→17:33)
[2018-12-05] MEDS ORDERED: ENOXAPARIN SODIUM INJ 40 MG/0.4 ML DISP.SYRIN SUBCUT SCH (10:00)
[2018-12-05] MEDS: CEFEPIME 1 GM/D5W RTU 1 GM/50 ML RTUPB IV SCH ×2 (10:00→21:05)
--- NOTE | 2018-12-05 11:24 | ST Inp Modified Barium Swallow ---
Medical Diagnosis - Medical Diagnoses Medical Diagnosis Description & ICD-10 Code(s): Systemic Inflammatory Response Syndrome, UTI, Fever, Acute Delirium [place] [facility] [place]: 12/05/18 - History History Obtained From: Patient - Patient reports distant memory of PNA during time in [employer]. Denies previous troble swallowing or GERD. -: Medical - Per EMR: Patient admitted to hospital with acute fever, feeling weak, suffering from malaise, becoming confused, and coughing. Admitted with diagnosis of Systemic Inflammatory Response Syndrome, UTI, Acute Nontraumatic Kidney Injury, Fever, and Acute Delirium. Past medical history includes A-Fib, Hypertension, Coronary Artery Disease, COPD, Hiatal Hernia, and Ischemic CVA. Past cardiac surgeries and surgery for spinal stenosis. CN II-XII grossly intact during neurological exam. Currently on regular diet. Chest X-Ray (12/04) revealing bilateral lung infiltrates raising the possibility of PNA. Chest CT (12/04) cannot exclude PNA. Medications: Medications Reviewed - yes - Subjective Current Nutritional Means: PO Current PO Diet: Regular Current Symptoms: other - chest imaging suggesting PNA Pain: denies pain - Objective Assessment: Upright - Food Trials Food Trials Used: Thin liquids, Steward thick liquids, Pureed, Regular The Patient: Was Able to Self Feed, via cup, via spoon - Assessment Labial Function: Within Normal Limits Lingual Function: Within Normal Limits Mandibular Function: Within Normal Limits Velo-Pharyngeal Function: Not assessed - Pharyngeal Stage Initiation of Pharyngeal Stage: Normal Reduced Tongue Base Retraction: Yes Pre-Swallowing Pooling in Valleculae: None Pre-Swallowing Pooling in Pyriforms: None Multiple Swallows With: Effective - to reduce residue Post Swallow Residuals in Valleculae: None - thin liquid, Mild - nectar thick liquids and puree, Moderate - regular solids Post Swallow Residuals in Pyriforms: None Post Swallow Residuals: throughout pharynx - following regular solid trials Pahryngeal Stage Comments: Patient presents with moderate oropharyngeal dysphagia characterized by reduced base of tongue retraction and moderate vallecular residue with regular solids leading to aspiration of mixed residuals. Solid residue reduced with verbal cue for dry swallow, but patient was inconsistently able to follow command. Aspiration occurred x1, when thin liquid combined with residue from solid. Patient did have delayed cough response to aspiration. Steward thick liquid was penetrated x1 with initial large sip, but all other nectar thick trials completed without airway compromise. Given incr eased residue with regular solids and patients increased control during swallow with nectar thick liquids, recommend chopped solids and nectar thick liquid diet with aspiration precautions (sitting upright, small bites/sips, and slow rate). Patients current dysphagia is likely related to age related changes coupled with past CVA and current de-conditioned state. Therefore, recommend follow-up speech therapy to ensure compliance with diet, aspiration precautions, and ability to upgrade diet. - Impression/Summary Laryngeal Penetration: Yes, Silent, during swallow - slight penetration with inital large sip of nectar thick liquid; however, no further penetration with nectar with controlled sips Tracheal Aspiration: yes - aspiration x1 with thin liquid trial following regular solid. Thin liquid could con be contained in vallecula secondary to residual solid residue leading to aspiration with delayed cough response., delayed cough, during swallow Productive Cough: Yes - delayed following aspiration Patient Presents With: Oral-Pharyngeal dysph. Risk of Aspiration: Moderate - Recommendations NPO: no Solid Diet Recommendations: Chopped Meat Liquid Diet Recommendations: Steward-Thick Strict Aspitarion Precautions: Yes - Small bites, slow rate,upright Dysphagia Therapy with [employer]: Yes, Inpatient Recommended Techniques: Fully Upright During Meal, Small Bites and Sips Supervision: Distant - intermittent supervision for compliance with aspiration precautions - Time Total Time: 26 Total Timed Minutes: 26
--- NOTE | 2018-12-05 14:03 | PDOC CONSULTATION ---
Consultation Consult Date: 12/05/18 Attending physician:: BRANDY SEE Provider Consulted: KITTY MIRANDA Consult reason:: Sepsis altered mental status History of Present Illness Admission Date/PCP: 12/04/18 03:19 MEMO ENGLISH III, MD History of Present Illness: SANTY COVARRUBIAS is a 83 year old male presented with his spouse to the emergency room after 2 days of fever and malaise at the time of presentation his temperature was 102.8 and he was very much confused status post a hospitalization in [facility] for carotid endarterectomy and apparently has chronic UTIs. He admits to smoking per his spouse approximately 1 pack a day for 42 years but has not smoked in the last 20 years Past Medical History Cardiac Medical History: Reports: Atrial Fibrillation, Coronary Artery Disease, Hyperlipidema, Hypertension, Peripheral Vascular Disease Denies: Myocardial Infarction Pulmonary Medical History: Denies: Asthma, Chronic Obstructive Pulmonary Disease (COPD) EENT Medical History: Denies: Cataracts, Ears - Hearing aids, Nose - Allergic rhinitis Neurological Medical History: Reports: Ischemic CVA Denies: Hemorrhagic CVA, Multiple Sclerosis, Seizures Endocrine Medical History: Reports: Hypothyroidism Denies: Diabetes Mellitus Type 1, Diabetes Mellitus Type 2, Hyperthyroidism, Obesity Renal/ Medical History: Reports: Other - Urinary bladder cancer, benign prostatic hypertrophy Denies: Chronic Kidney Disease, Nephrolithiasis Malignancy Medical History: Reports: Other - Urinary bladder cancer GI Medical History: Reports: Hiatal Hernia Denies: Cirrhosis, Crohn's Disease, Diverticulitis, Hepatitis, Ulcerative C olitis Musculoskeltal Medical History: Reports: Arthritis - RA Denies: Fibromyalgia, Gout Skin Medical History: Denies: Eczema, Psoriasis Psychiatric Medical History: Reports: Tobacco Dependency Denies: Alcohol Dependency, Depression, Substance Abuse Traumatic Medical History: Reports: None Hematology: Reports: Bleeding Tendencies - Subcutaneous bleeding and bruising on Plavix Denies: Anemia Infectious Medical History: Reports: None Past Surgical History Past Surgical History: Reports: Cardiac Catheterization, Carotid Endarterectomy, Coronary Artery Bypass Graft - With ablation for correction of atrial fibrillation, Orthopedic Surgery - Surgery for spinal stenosis, Other - Bladder surgery for cancer plus TURP Social History Information Source: Patient, [facility] Records Lives with: Spouse/Significant other Smoking Status: Former Smoker Cigarettes Packs Per Day: 1 Number of Years Smokin Last Time Smoked: 20 Passive smoke exposure as: Both Frequency of Alcohol Use: None Hx Recreational Drug Use: No Drugs: None Hx Prescription Drug Abuse: No Do you have pets?: No Have you had any respiratory illnesses as a child?: No Have you been exposed to any sick contacts recently?: No - Advance Directive Resuscitation Status: Full Code Family History Family History: Arthritis, CAD, Hypertension, Other - Alzheimer's disease. denies: DM, Malignancy Parental Family History Reviewed: Yes Children Family History Reviewed: Yes Sibling(s) Family History Reviewed.: Yes Medication/Allergy Home Medications: Carisoprodol [Soma] 350 mg PO TID 12/04/18 Citalopram Hydrobromide [Celexa 10 mg Tablet] 10 mg PO DAILY 12/04/18 Clopidogrel Bisulfate [Plavix 75 mg Tablet] 75 mg PO DAILY 12/04/18 Folic Acid [Folvite 1 mg Tablet] 1 mg PO DAILY 12/04/18 Levothyroxine Sodium [Synthroid] 125 mcg PO Q6AM 12/04/18 Lisinopril/Hydrochlorothiazide [Lisinopril-Hctz 20-12.5 mg Tab] 1 each PO DAILY 12/04/18 Methotrexate Sodium [Rheumatrex 2.5 mg Tablet] 2.5 mg PO .WEEKLY 12/04/18 Metoprolol Succinate [Toprol XL 100 mg Tablet] 100 mg PO DAILY 12/04/18 Allergies/Adverse Reactions: Sulfa (Sulfonamide Antibiotics) Allergy (Verified 12/04/18 05:23) Review of Systems All systems: reviewed and no additional remarkable complaints except as stated Physical Exam Vital Signs: Temp Pulse Resp BP Pulse Ox 99.5 F 110 H 20 128/57 H 91 L 12/05/18 08:00 12/05/18 08:00 12/05/18 08:00 12/05/18 08:00 12/05/18 08:00 Intake & Output 12/04/18 12/05/18 12/06/18 06:59 06:59 06:59 Intake Total 1000 3833 1000 Output Total 100 2100 Balance 900 1733 1000 Weight 69.7 kg 69.9 kg General appearance: PRESENT: no acute distress, cooperative, disheveled, hard of hearing Head exam: PRESENT: atraumatic, normocephalic Eye exam: PRESENT: conjunctiva pale, EOMI. ABSENT: nystagmus, periorbital swelling, scleral icterus Mouth exam: PRESENT: dry mucosa, neck supple, tongue midline Neck exam: ABSENT: carotid bruit, full ROM, JVD, lymphadenopathy, meningismus, tenderness, thyromegaly, tracheal deviation, tracheostomy, other Respiratory exam: PRESENT: decreased breath sounds, prolonged expiratory phas, rhonchi, unlabored. ABSENT: rales, retraction, stridor, symmetrical, tachypnea Cardiovascular exam: PRESENT: irregular rhythm Pulses: PRESENT: normal radial pulses GI/Abdominal exam: PRESENT: soft. ABSENT: distended, guarding, mass, tenderness Extremities exam: ABSENT: calf tenderness, clubbing, joint swelling, pedal edema, tenderness Musculoskeletal exam: ABSENT: ambulatory, deformity, dislocation Neurological exam: PRESENT: altered, awake Psychiatric exam: PRESENT: normal mood Skin exam: PRESENT: dry, warm Results Laboratory Results: 12/05/18 06:57 12/05/18 06:57 12/04/18 12/04/18 12/05/18 14:25 14:25 06:57 WBC 4.9 RBC 2.37 L Hgb 7.1 L Hct 20.9 L MCV 88 MCH 29.9 MCHC 33.9 RDW 16.7 H Plt Count 240 Retic Count (auto) 5.92 H Absolute Retic 0.140 H Sodium 136.1 L Potassium 3.9 Chloride 102 Carbon Dioxide 29 Anion Gap 5 BUN 23 H Creatinine 1.40 H Est GFR ( Amer) 59 L Est GFR (Non-Af Amer) 49 L Glucose 98 Lactic Acid 1.9 Calcium 8.0 L Magnesium Iron TIBC % Saturation Ferritin Vitamin B12 Folate 12/05/18 06:57 WBC RBC Hgb Hct MCV MCH MCHC RDW Plt Count Retic Count (auto) Absolute Retic Sodium 134.7 L Potassium 4.6 Chloride 100 Carbon Dioxide 28 Anion Gap 7 BUN 21 H Creatinine 1.38 H Est GFR ( Amer) > 60 Est GFR (Non-Af Amer) 49 L Glucose 92 Lactic Acid Calcium 8.0 L Magnesium 1.6 Iron 15.8 L TIBC 191 L % Saturation 8 Ferritin 186.00 Vitamin B12 505.0 Folate 10.70 12/04/18 12/04/18 12/04/18 01:20 01:20 07:29 Creatine Kinase 52 L 86 CK-MB (CK-2) 1.30 Troponin I 0.240 12/04/18 12/04/1812/04/19 07:29 14:25 20:35 Creatine Kinase CK-MB (CK-2) 3.46 4.71 H Troponin I 1.840 1.280 0.922 Impressions: Chest X-Ray 12/04/18 01:29 IMPRESSION: Possible bibasilar pneumonia. Emphysema. copyright 2010 [employer]- All Rights Reserved Chest CT 12/04/18 12:23 IMPRESSION: Pulmonary fibrosis. UIP pattern. Ground-glass opacification in each lung suggesting chronic interstitial changes. Cannot exclude limited pneumonia in the right lower lobe. Small pleural effusions. Assessment & Plan - Diagnosis (1) Acute delirium Is this a current diagnosis for this admission?: Yes Plan: Slowly returning to baseline (2) SIRS (systemic inflammatory response syndrome) Is this a current diagnosis for this admission?: Yes Plan: Elevated temperature increased lactic acid (3) Sepsis Qualifiers: Sepsis type: sepsis due to unspecified organism Sepsis acute organ dysfunction status: with acute organ dysfunction Severe sepsis acute organ dysfunction type: acute renal failure Acute renal failure type: unspecified Severe sepsis shock status: without septic shock Qualified Code(s): A41.9 - Sepsis, unspecified organism; R65.20 - Severe sepsis without septic shock; N17.9 - Acute kidney failure, unspecified Is this a current diagnosis for this admission?: Yes Plan: Recurrent UTIs (4) Urinary tract infection Qualifiers: Urinary tract infection type: acute cystitis Hematuria presence: without hematuria Qualified Code(s): N30.00 - Acute cystitis without hematuria Is this a current diagnosis for this admission?: Yes Plan: Labs- All tests 24 hr 12/04/18 01:45 Urine Color YELLOW Urine Appearance SLIGHTLY-CLOUDY Urine pH 5.0 Ur Specific Merlin 1.014 Urine Protein 30 H Urine Blood SMALL H Urine Nitrite NEGATIVE Ur Leukocyte Esterase LARGE H Urine WBC (Auto) >182 Urine RBC (Auto) 7 Urine Bacteria (Auto) 3+
--- NOTE | 2018-12-05 14:34 | EKG REPORT ---
SEVERITY:- ABNORMAL ECG - SINUS TACHYCARDIA REPOL ABNRM SUGGESTS ISCHEMIA, DIFFUSE LEADS : Confirmed by: Chayo Saldana 05-Dec-2018 14:33:10
--- NOTE | 2018-12-05 14:34 | EKG REPORT ---
SEVERITY:- NORMAL ECG - SINUS RHYTHM : Confirmed by: Chayo Saldana 05-Dec-2018 14:33:15
--- NOTE | 2018-12-05 14:35 | EKG REPORT ---
SEVERITY:- OTHERWISE NORMAL ECG - SINUS TACHYCARDIA ST-T WAVE CHANGES NON SPECIFIC : Confirmed by: Chayo Saldana 05-Dec-2018 14:34:24
--- NOTE | 2018-12-05 15:01 | RADIOLOGY REPORT (SQ) ---
EXAM DESCRIPTION: THONG SWALLOW COMPLETED DATE/TIME: 12/05/2018 9:57 am REASON FOR STUDY: ASPIRATION PNUEMONIA COMPARISON: None. TECHNIQUE: Videofluoroscopic swallowing examination was performed in conjunction with speech patholo gy. Videofluoroscopic imaging was obtained and reviewed and these are the findings: RADIATION DOSE: Fluoro time 4.12 minutes 1 images saved to PACS. LIMITATIONS: None FINDINGS: The patient was brought into the fluoro room and placed upright on a modified barium swall ow chair. The patient was then given multiple consistencies mixed with barium to swallow under live fluoroscopic video guidance. According to the Speech Pathologist there was aspiration seen with thin barium. Laryngeal penetration seen with nectar thick consistency. Please refer to the speech pathol ogy report for further details. IMPRESSION: ASPIRATION WITH THIN BARIUM, LARYNGEAL PENETRATION WITH NECTAR THICK CONSISTENCY. PLEASE SEE SPEECH PATHOLOGIST REPORT FOR OTHER FINDINGS AND RECOMMENDATIONS. COMMENT: None Quality ID [id number]: Final reports for procedures using fluoroscopy that document radiation exposure ivory mika, or exposure time and number of fluorographic images (if radiation exposure indices are not avail able) TECHNICAL DOCUMENTATION: JOB ID: [id number] 2016 [email or web address]- All Rights Reserved Reading location - IP/workstation name: [email or web address]
--- NOTE | 2018-12-05 15:29 | PDOC PROGRESS REPORT ---
Subjective Progress Note for:: 12/05/18 Subjective:: This is an 83 yr old male with a PMH of CAD with priro CABG, recent right endartectomy and bladder CA S/P BCG instillation who presented with fever, coughing and malaise. He was found to have a UTI and pneumonia chest x-ray. He was started on IV antibiotics. Patient did have up trending of his troponin yesterday. He did not have any chest pain. He reported his shortness of breath was better. No acute event overnight. He remains chest pain-free. He did report having dysuria at home. Reason For Visit: SIRS, POSSIBLE PNEUMONIA, POSSIBLE URINARY TRACT Physical Exam Vital Signs: Temp Pulse Resp BP Pulse Ox 99.3 F 110 H 20 108/49 L 98 12/05/18 11:23 12/05/18 11:23 12/05/18 11:23 12/05/18 11:23 12/05/18 11:23 Intake & Output 12/04/18 12/05/18 12/06/18 06:59 06:59 06:59 Intake Total 1000 3833 1496 Output Total 100 2100 200 Balance 900 1733 1296 Weight 153 lb 10.595 oz 154 lb 1.65 oz General appearance: PRESENT: no acute distress, well-developed, well-nourished Head exam: PRESENT: atraumatic, normocephalic Eye exam: PRESENT: conjunctiva pink, EOMI, PERRLA. ABSENT: scleral icterus Ear exam: PRESENT: normal external ear exam Mouth exam: PRESENT: moist, tongue midline Neck exam: ABSENT: carotid bruit, JVD, lymphadenopathy, thyromegaly Respiratory exam: PRESENT: rhonchi. ABSENT: rales, wheezes Cardiovascular exam: PRESENT: RRR. ABSENT: diastolic murmur, rubs, systolic murmur Pulses: PRESENT: normal dorsalis pedis pul GI/Abdominal exam: PRESENT: normal bowel sounds, soft. ABSENT: distended, guarding, mass, organolmegaly, rebound, tenderness Rectal exam: PRESENT: deferred Extremities exam: PRESENT: full ROM. ABSENT: calf tenderness, clubbing, pedal edema Neurological exam: PRESENT: alert, awake, oriented to person, oriented to place, oriented to time, oriented to situation, CN II-XII grossly intact. ABSENT: motor sensory deficit Results Laboratory Results: 12/05/18 06:57 12/05/18 06:57 12/04/18 12/04/18 12/05/18 14:25 14:25 06:57 WBC 4.9 RBC 2.37 L Hgb 7.1 L Hct 20.9 L MCV 88 MCH 29.9 MCHC 33.9 RDW 16.7 H Plt Count 240 Retic Count (auto) 5.92 H Absolute Retic 0.140 H Sodium 136.1 L Potassium 3.9 Chloride 102 Carbon Dioxide 29 Anion Gap 5 BUN 23 H Creatinine 1.40 H Est GFR ( Amer) 59 L Est GFR (Non-Af Amer) 49 L Glucose 98 Lactic Acid 1.9 Calcium 8.0 L Magnesium Iron TIBC % Saturation Ferritin Vitamin B12 Folate 12/05/18 06:57 WBC RBC Hgb Hct MCV MCH MCHC RDW Plt Count Retic Count (auto) Absolute Retic Sodium 134.7 L Potassium 4.6 Chloride 100 Carbon Dioxide 28 Anion Gap 7 BUN 21 H Creatinine 1.38 H Est GFR ( Amer) > 60 Est GFR (Non-Af Amer) 49 L Glucose 92 Lactic Acid Calcium 8.0 L Magnesium 1.6 Iron 15.8 L TIBC 191 L % Saturation 8 Ferritin 186.00 Vitamin B12 505.0 Folate 10.70 12/04/18 12/04/18 12/04/18 01:20 01:20 07:29 Creatine Kinase 52 L 86 CK-MB (CK-2) 1.30 Troponin I 0.240 12/04/18 12/04/18 12/04/18 07:29 14:25 20:35 Creatine Kinase CK-MB (CK-2) 3.46 4.71 H Troponin I 1.840 1.280 0.922 Impressions: Chest X-Ray 12/04/18 01:29 IMPRESSION: Possible bibasilar pneumonia. Emphysema. copyright 2011 [employer]- All Rights Reserved Chest CT 12/04/18 12:23 IMPRESSION: Pulmonary fibrosis. UIP pattern. Ground-glass opacification in each lung suggesting chronic interstitial changes. Cannot exclude limited pneumonia in the right lower lobe. Small pleural effusions. Assessment and Plan - Diagnosis (1) Sepsis Qualifiers: Sepsis type: sepsis due to unspecified organism Sepsis acute organ dysfunction status: with acute organ dysfunction Severe sepsis acute organ dysfunction type: acute renal failure Acute renal failure type: unspecified Severe sepsis shock status: without septic shock Qualified Code(s): A41.9 - Sepsis, unspecified organism; R65.20 - Severe sepsis without septic shock; N17.9 - Acute kidney failure, unspecified Is this a current diagnosis for this admission?: Yes Plan: Secondary to pneumonia and UTI. Continue IV antibiotics for now. Blood cultures are negative so far. Sputum culture pending. Urine culture is growing gram-negative rods. (2) Pneumonia Is this a current diagnosis for this admission?: Yes Plan: Improving. Continue IV antibiotics. Sputum culture pending. Pulmonology was also consulted as chest CT also showed possible UIP pattern. (3) Acute delirium Is this a current diagnosis for this admission?: Yes Plan: Resolved. Secondary to sepsis. (4) Elevated troponin Is this a current diagnosis for this admission?: Yes Plan: Possibly type II [place] from sepsis, pneumonia and acute renal failure. 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 Candelario who does think this is more of demand ischemia. He does recommend inpatient stress testing prior to discharge. (5) Acute nontraumatic kidney injury Is this a current diagnosis for this admission?: Yes Plan: Improving with IV fluids. (6) Urinary tract infection Qualifiers: Urinary tract infection type: acute cystitis Hematuria presence: without hematuria Qualified Code(s): N30.00 - Acute cystitis without hematuria Is this a current diagnosis for this admission?: Yes Plan: Continue IV antibiotics. Urine culture growing gram-negative rods. - Time Time Spent with patient: 25-34 minutes
--- NOTE | 2018-12-05 18:08 | RADIOLOGY REPORT (SQ) ---
EXAM DESCRIPTION: CT HEAD WITHOUT COMPLETED DATE/TIME: 12/05/2018 5:54 pm REASON FOR STUDY: AMS COMPARISON: None. TECHNIQUE: Axial images acquired through the brain without intravenous contrast. Images reviewed wi th bone, brain and subdural windows. Additional sagittal and coronal reconstructions were generated. Images stored on PACS. All CT scanners at this facility use dose modulation, iterative reconstruction, and/or weight based d osing when appropriate to reduce radiation dose to as low as reasonably achievable (ALARA). [facility]: Dose Right [facility]: CareDose [facility]: Dose Right [facility]: Teradose 4D [facility]: Smart [employer] RADIATION DOSE: CT Rad equipment meets quality standard of care and radiation dose reduction techniq ues were employed. CTDIvol: 53.2 mGy. DLP: 991 mGy-cm. mGy. LIMITATIONS: None. FINDINGS: VENTRICLES: Prominent ventricles secondary to involutional atrophy. CEREBRUM: Cortical atrophy. No masses. No hemorrhage. No midline shift. No evidence for acute inf arction. Few scattered areas of low density in the white matter most likely chronic small vessel isch emic changes. CEREBELLUM: No masses. No hemorrhage. No alteration of density. No evidence for acute infarction. EXTRAAXIAL SPACES: No fluid collections. No masses. ORBITS AND GLOBE: No intra- or extraconal masses. Normal contour of globe without masses. CALVARIUM: No fracture. PARANASAL SINUSES: No fluid or mucosal thickening. SOFT TISSUES: No mass or hematoma. OTHER: No other significant finding. IMPRESSION: Involutional changes with mild chronic microvascular ischemia and with no acute intracra nial imaging findings. EVIDENCE OF ACUTE STROKE: NO. COMMENT: Quality ID # [id number]: Final reports with documentation of one or more dose reduction techniques (e.g., Automated exposure control, adjustment of the mA and/or kV according to patient size, use of iterative reconstruction technique) TECHNICAL DOCUMENTATION: JOB ID: [id number] [employer]- All Rights Reserved Reading location - IP/workstation name: [email or web address]
[2018-12-05 18:47] LABS: HEMATOCRIT 20.8 % (37.9-51.0); MEAN CORPUSCULAR HEMOGLOBIN 29.9 pg (27.0-33.4); MEAN CORPUSCULAR HGB CONC 33.9 g/dL (32.0-36.0); MEAN CORPUSCULAR VOLUME 88 fl (80-97); PLATELET COUNT 267 10^3/uL (150-450); RED BLOOD COUNT 2.35 10^6/uL (4.35-5.55); WHITE BLOOD COUNT 5.6 10^3/uL (4.0-10.5)
[2018-12-05] MEDS: ATORVASTATIN CALCIUM 40 MG TABLET PO SCH (21:05)
[2018-12-05] MEDS: AZITHROMYCIN 500 MG in DEXTROSE 5%-WATER 250 ML IV SCH (21:06)
[2018-12-05] MEDS: VANCOMYCIN HCL 1,250 MG in DEXTROSE 5%-WATER 250 ML IV SCH (23:24)
[2018-12-05] MEDS: ACETAMINOPHEN 325 MG TABLET PO PRN (23:24)
[2018-12-06] MEDS: LEVALBUTEROL HCL NEB 1.25 MG/3 ML AMPUL NEB SCH ×3 (00:04→16:06)
[2018-12-06 05:43] LABS: HEMATOCRIT 20.4 % (37.9-51.0); MEAN CORPUSCULAR HEMOGLOBIN 29.5 pg (27.0-33.4); MEAN CORPUSCULAR HGB CONC 33.8 g/dL (32.0-36.0); MEAN CORPUSCULAR VOLUME 87 fl (80-97); PLATELET COUNT 248 10^3/uL (150-450); RED BLOOD COUNT 2.34 10^6/uL (4.35-5.55); RED CELL DISTRIBUTION WIDTH 16.8 % (11.5-14.0); WHITE BLOOD COUNT 5.4 10^3/uL (4.0-10.5)
[2018-12-06 05:46] LABS: BLOOD UREA NITROGEN 16 mg/dL (7-20); GLUCOSE 101 mg/dL (75-110); POTASSIUM 3.8 mmol/L (3.6-5.0)
[2018-12-06 05:52] LABS: CARBON DIOXIDE 29 mmol/L (22-30); CHLORIDE 102 mmol/L (98-107)
[2018-12-06 05:58] LABS: ANION GAP 3 (5-19)
[2018-12-06 06:15] LABS: HEMOGLOBIN 6.9 g/dL (13.5-17.0)
[2018-12-06] MEDS ORDERED: NORMAL SALINE 250 ML IV PRN ×2 (07:04)
[2018-12-06] MEDS ORDERED: CHLORPROMAZINE HCL INJ 25 MG/1 ML AMPULE IV PRN (07:19)
[2018-12-06] MEDS ORDERED: ONDANSETRON HCL INJ/PF 4 MG/2 ML SDV IV PRN (07:30)
[2018-12-06] MEDS: ACETYLCYSTEINE 20% SOLN 800 MG/4 ML VIAL.NEB NEB SCH ×2 (08:07→23:02)
[2018-12-06] MEDS: INSULIN LISPRO 100 UNIT/ML 3 ML VIAL SUBCUT SCH ×2 (09:03→11:09)
[2018-12-06] MEDS: ASPIRIN 81 MG TABLET, CHEWABLE PO SCH (09:07)
[2018-12-06] MEDS: DOCUSATE SODIUM 100 MG CAPSULE PO SCH ×2 (09:07→18:25)
[2018-12-06] MEDS: FAMOTIDINE 20 MG TABLET PO SCH ×2 (09:07→22:06)
[2018-12-06] MEDS: CEFEPIME 1 GM/D5W RTU 1 GM/50 ML RTUPB IV SCH ×2 (09:07→22:07)
--- NOTE | 2018-12-06 13:42 | PDOC PROGRESS REPORT ---
Subjective Progress Note for:: 12/06/18 Subjective:: This is an 83 yr old male with a PMH of CAD with priro CABG, recent right endartectomy and bladder CA S/P BCG instillation who presented with fever, coughing and malaise. He was found to have a UTI and pneumonia chest x-ray. He was started on IV antibiotics. 12/05: Patient did have up trending of his troponin yesterday. He did not have any chest pain. He reported his shortness of breath was better. No acute event overnight. He remains chest pain-free. He did report having dysuria at home. 12/06: Per RN, patient reportedly desaturated to 85% last night and supplemental O2 was increased to 5 L via nasal cannula. It was unclear if he was wearing his CPAP machine. Patient denies any acute complaints. He denies chest pain or shortness of breath. He continues to improve. Will wean down on oxygen today. Will consult PT to try to increase ambulation today. Stress test was rescheduled for tomorrow. Reason For Visit: SIRS, POSSIBLE PNEUMONIA, POSSIBLE URINARY TRACT Physical Exam Vital Signs: Temp Pulse Resp BP Pulse Ox 97.5 F 103 H 20 125/82 98 12/06/18 12:43 12/06/18 12:43 12/06/18 12:43 12/06/18 12:43 12/06/18 12:43 Intake & Output 12/05/18 12/06/18 12/07/18 06:59 06:59 06:59 Intake Total 3833 2356 320 Output Total 2100 1600 500 Balance 1733 756 -180 Weight 154 lb 1.65 oz 156 lb 11.979 oz General appearance: PRESENT: no acute distress, well-developed, well-nourished Head exam: PRESENT: atraumatic, normocephalic Eye exam: PRESENT: conjunctiva pink, EOMI, PERRLA. ABSENT: scleral icterus Ear exam: PRESENT: normal external ear exam Mouth exam: PRESENT: moist, tongue midline Neck exam: ABSENT: carotid bruit, JVD, lymphadenopathy, thyromegaly Respiratory exam: PRESENT: clear to auscultation estela. ABSENT: rales, rhonchi, wheezes Cardiovascular exam: PRESENT: RRR. ABSENT: diastolic murmur, rubs, systolic murmur Pulses: PRESENT: normal dorsalis pedis pul GI/Abdominal exam: PRESENT: normal bowel sounds, soft. ABSENT: distended, guarding, mass, organolmegaly, rebound, tenderness Rectal exam: PRESENT: deferred Extremities exam: PRESENT: full ROM. ABSENT: calf tenderness, clubbing, pedal edema Neurological exam: PRESENT: alert, awake, oriented to person, oriented to place, oriented to time, CN II-XII grossly intact. ABSENT: motor sensory deficit Results Laboratory Results: 12/06/18 05:07 12/06/18 05:07 12/04/18 12/05/18 12/06/18 05:31 18:29 05:07 WBC 5.6 5.4 RBC 2.35 L 2.34 L Hgb 7.0 L 6.9 L Hct 20.8 L 20.4 L MCV 88 87 MCH 29.9 29.5 MCHC 33.9 33.8 RDW 17.0 H 16.8 H Plt Count 267 248 Sodium Potassium Chloride Carbon Dioxide Anion Gap BUN Creatinine Est GFR ( Amer) Est GFR (Non-Af Amer) Glucose Calcium Magnesium Blood Type O POSITIVE Antibody Screen NEGATIVE 12/06/18 05:07 WBC RBC Hgb Hct MCV MCH MCHC RDW Plt Count Sodium 134.3 L Potassium 3.8 Chloride 102 Carbon Dioxide 29 Anion Gap 3 L BUN 16 Creatinine 1.23 Est GFR ( Amer) > 60 Est GFR (Non-Af Amer) 56 L Glucose 101 Calcium 8.0 L Magnesium 1.7 Blood Type Antibody Screen 12/04/18 01:45 Catheterized Urine Urine Culture - Final Escherichia Coli 12/04/18 12/04/18 12/04/18 01:20 01:20 07:29 Creatine Kinase 52 L 86 CK-MB (CK-2) 1.30 Troponin I 0.240 12/04/18 12/04/18 12/04/18 07:29 14:25 20:35 Creatine Kinase CK-MB (CK-2) 3.46 4.71 H Troponin I 1.840 1.280 0.922 12/05/18 12/05/18 13:05 18:29 Creatine Kinase CK-MB (CK-2) Troponin I 0.690 0.620 Impressions: Chest X-Ray 12/04/18 01:29 IMPRESSION: Possible bibasilar pneumonia. Emphysema. copyright 2011 [employer]- All Rights Reserved Chest CT 12/04/18 12:23 IMPRESSION: Pulmonary fibrosis. UIP pattern. Ground-glass opacification in each lung suggesting chronic interstitial changes. Cannot exclude limited pneumonia in the right lower lobe. Small pleural effusions. Head CT 12/05/18 00:00 IMPRESSION: Involutional changes with mild chronic microvascular ischemia and with no acute intracranial imaging findings. EVIDENCE OF ACUTE STROKE: NO. Modified Barium Swallow 12/05/18 00:00 IMPRESSION: ASPIRATION WITH THIN BARIUM, LARYNGEAL PENETRATION WITH NECTAR THICK CONSISTENCY. PLEASE SEE SPEECH PATHOLOGIST REPORT FOR OTHER FINDINGS AND RECOMMENDATIONS. Assessment and Plan - Diagnosis (1) Sepsis Qualifiers: Sepsis type: sepsis due to unspecified organism Sepsis acute organ dysfunction status: with acute organ dysfunction Severe sepsis acute organ dysfunction type: acute renal failure Acute renal failure type: unspecified Severe sepsis shock status: without septic shock Qualified Code(s): A41.9 - Sepsis, unspecified organism; R65.20 - Severe sepsis without septic shock; N17.9 - Acute kidney failure, unspecified Is this a current diagnosis for this admission?: Yes Plan: Secondary to pneumonia and UTI. Continue IV antibiotics for now. Blood cultures are negative so far. Sputum culture pending. Urine culture grew E. coli. (2) Pneumonia Is this a current diagnosis for this admission?: Yes Plan: Improving. Continue IV antibiotics. Sputum culture pending. Pulmonology was also consulted as chest CT also showed possible UIP pattern. (3) Acute delirium Is this a current diagnosis for this admission?: Yes Plan: Resolved. Secondary to sepsis. (4) Elevated troponin Is this a current diagnosis for this admission?: Yes Plan: Possibly type II MD from sepsis, pneumonia and acute renal failure. Discussed with patient's algebraist, Dr. Candelario who does think this is more of demand ischemia. He does recommend inpatient stress testing prior to discharge. (5) Acute nontraumatic kidney injury Is this a current diagnosis for this admission?: Yes Plan: Improved with IV fluids. (6) Urinary tract infection Qualifiers: Urinary tract infection type: acute cystitis Hematuria presence: without hematuria Qualified Code(s): N30.00 - Acute cystitis without hematuria Is this a current diagnosis for this admission?: Yes Plan: Continue IV antibiotics. Urine culture grew E. coli. (7) Anemia Is this a current diagnosis for this admission?: Yes - Time Time Spent with patient: 25-34 minutes
[2018-12-06] MEDS: FERROUS SULFATE 325 MG TABLET PO SCH (14:18)
--- NOTE | 2018-12-06 14:22 | RADIOLOGY REPORT (SQ) ---
EXAM DESCRIPTION: CHEST SINGLE VIEW COMPLETED DATE/TIME: 12/06/2018 1:41 pm REASON FOR STUDY: reassess infiltrates COMPARISON: 12/04/2018 EXAM PARAMETERS: NUMBER OF VIEWS: One view. TECHNIQUE: Single frontal radiographic view of the chest acquired. RADIATION DOSE: NA LIMITATIONS: None. FINDINGS: LUNGS AND PLEURA: Chronic interstitial changes. No acute pulmonary infiltrate or pleural effusion. MEDIASTINUM AND HILAR STRUCTURES: No masses. Contour normal. HEART AND VASCULAR STRUCTURES: Heart normal in size. Normal vasculature. BONES: No acute findings. HARDWARE: Sternotomy wires. Heart valve. OTHER: No other significant finding. IMPRESSION: Chronic lung changes with no acute cardiopulmonary findings. TECHNICAL DOCUMENTATION: JOB ID: [id number] [employer]- All Rights Reserved Reading location - IP/workstation name: [email or web address]
[2018-12-06 15:47] LABS: ABSOLUTE BASOPHILS # (AUTO) 0.1 10^3/uL (0.0-0.2); ABSOLUTE EOSINOPHILS # (AUTO) 0.3 10^3/uL (0.0-0.6); ABSOLUTE LYMPHOCYTES (AUTO) 1.3 10^3/uL (0.5-4.7); ABSOLUTE NEUT (AUTO) 4.8 10^3/uL (1.7-8.2); BASOPHILS % (AUTO) 1.3 % (0-2); EOSINOPHILS % (AUTO) 4.5 % (0-6); HEMATOCRIT 26.4 % (37.9-51.0); LYMPHOCYTES % (AUTO) 16.8 % (13-45); MEAN CORPUSCULAR HEMOGLOBIN 30.3 pg (27.0-33.4); MEAN CORPUSCULAR HGB CONC 34.4 g/dL (32.0-36.0); MEAN CORPUSCULAR VOLUME 88 fl (80-97); MONOCYTES % (AUTO) 13.6 % (3-13); PLATELET COUNT 277 10^3/uL (150-450); RED BLOOD COUNT 2.99 10^6/uL (4.35-5.55); RED CELL DISTRIBUTION WIDTH 16.4 % (11.5-14.0); SEGMENTED NEUTROPHILS % (AUTO) 63.8 % (42-78); TOTAL CELLS COUNTED % (AUTO) 100 %; WHITE BLOOD COUNT 7.6 10^3/uL (4.0-10.5)
[2018-12-06 15:54] LABS: HEMOGLOBIN 9.1 g/dL (13.5-17.0)
[2018-12-06] MEDS: ATORVASTATIN CALCIUM 40 MG TABLET PO SCH (22:06)
[2018-12-06] MEDS: AZITHROMYCIN 500 MG in DEXTROSE 5%-WATER 250 ML IV SCH (22:07)
[2018-12-06] MEDS: VANCOMYCIN HCL 1,250 MG in DEXTROSE 5%-WATER 250 ML IV SCH (22:08)
[2018-12-07] MEDS: LEVALBUTEROL HCL NEB 1.25 MG/3 ML AMPUL NEB SCH ×4 (03:03→23:48)
[2018-12-07 05:59] LABS: HEMATOCRIT 26.4 % (37.9-51.0); HEMOGLOBIN 9.2 g/dL (13.5-17.0); MEAN CORPUSCULAR HEMOGLOBIN 30.3 pg (27.0-33.4); MEAN CORPUSCULAR HGB CONC 34.7 g/dL (32.0-36.0); MEAN CORPUSCULAR VOLUME 87 fl (80-97); PLATELET COUNT 278 10^3/uL (150-450); RED BLOOD COUNT 3.03 10^6/uL (4.35-5.55); RED CELL DISTRIBUTION WIDTH 16.2 % (11.5-14.0)
[2018-12-07 06:26] LABS: ANION GAP 5 (5-19); BLOOD UREA NITROGEN 13 mg/dL (7-20); CALCIUM 8.2 mg/dL (8.4-10.2); CARBON DIOXIDE 29 mmol/L (22-30); CHLORIDE 98 mmol/L (98-107); GLUCOSE 94 mg/dL (75-110); POTASSIUM 4.2 mmol/L (3.6-5.0)
[2018-12-07] MEDS: ACETYLCYSTEINE 20% SOLN 800 MG/4 ML VIAL.NEB NEB SCH ×2 (09:04→21:06)
[2018-12-07] MEDS: FAMOTIDINE 20 MG TABLET PO SCH ×2 (11:02→21:50)
[2018-12-07] MEDS: ASPIRIN 81 MG TABLET, CHEWABLE PO SCH (11:02)
[2018-12-07] MEDS: FERROUS SULFATE 325 MG TABLET PO SCH (11:02)
[2018-12-07] MEDS: DOCUSATE SODIUM 100 MG CAPSULE PO SCH ×2 (11:02→17:14)
[2018-12-07] MEDS: CEFEPIME 1 GM/D5W RTU 1 GM/50 ML RTUPB IV SCH ×2 (11:03→21:50)
[2018-12-07] MEDS ORDERED: REGADENOSON INJ 0.4 MG/5 ML DISP.SYRIN IV ONE (12:23)
--- NOTE | 2018-12-07 16:56 | PDOC PROGRESS REPORT ---
Subjective Progress Note for:: 12/07/18 Subjective:: This is an 83 yr old male with a PMH of CAD with priro CABG, recent right endartectomy and bladder CA S/P BCG instillation who presented with fever, coughing and malaise. He was found to have a UTI and pneumonia chest x-ray. He was started on IV antibiotics. 12/05: Patient did have up trending of his troponin yesterday. He did not have any chest pain. He reported his shortness of breath was better. No acute event overnight. He remains chest pain-free. He did report having dysuria at home. 12/06: Per RN, patient reportedly desaturated to 85% last night and supplemental O2 was increased to 5 L via nasal cannula. It was unclear if he was wearing his CPAP machine. Patient denies any acute complaints. He denies chest pain or shortness of breath. He continues to improve. Will try to wean down on oxygen today. Will consult PT to try to increase ambulation today. Stress test was rescheduled for tomorrow. 12/07: No acute event overnight. He denies acute complaints. Denies chest pain or SOB. 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 Reason For Visit: SIRS, POSSIBLE PNEUMONIA, POSSIBLE URINARY TRACT Physical Exam Vital Signs: Temp Pulse Resp BP Pulse Ox 97.4 F 107 H 22 H 138/47 H 98 12/07/18 15:35 12/07/18 15:35 12/07/18 15:35 12/07/18 15:35 12/07/18 15:35 Intake & Output 12/06/18 12/07/18 12/08/18 06:59 06:59 06:59 Intake Total 2356 1731 170 Output Total 1600 1425 400 Balance 756 306 -230 Weight 156 lb 11.979 oz 163 lb 9.328 oz General appearance: PRESENT: no acute distress, well-developed, well-nourished Head exam: PRESENT: atraumatic, normocephalic Eye exam: PRESENT: conjunctiva pink, EOMI, PERRLA. ABSENT: scleral icterus Ear exam: PRESENT: normal external ear exam Mouth exam: PRESENT: moist, tongue midline Neck exam: ABSENT: carotid bruit, JVD, lymphadenopathy, thyromegaly Respiratory exam: PRESENT: rhonchi. ABSENT: rales, wheezes Cardiovascular exam: PRESENT: RRR. ABSENT: diastolic murmur, rubs, systolic murmur GI/Abdominal exam: PRESENT: normal bowel sounds, soft. ABSENT: distended, guarding, mass, organolmegaly, rebound, tenderness Rectal exam: PRESENT: deferred Extremities exam: PRESENT: full ROM. ABSENT: calf tenderness, clubbing, pedal edema Neurological exam: PRESENT: alert, awake, oriented to person, oriented to place, oriented to time, oriented to situation, CN II-XII grossly intact. ABSENT: motor sensory deficit Results Laboratory Results: 12/07/18 05:49 12/07/18 05:49 12/07/18 12/07/18 05:49 05:49 WBC 8.0 RBC 3.03 L Hgb 9.2 L Hct 26.4 L MCV 87 MCH 30.3 MCHC 34.7 RDW 16.2 H Plt Count 278 Sodium 132.2 L Potassium 4.2 Chloride 98 Carbon Dioxide 29 Anion Gap 5 BUN 13 Creatinine 1.25 Est GFR ( Amer) > 60 Est GFR (Non-Af Amer) 55 L Glucose 94 Calcium 8.2 L Magnesium 1.8 12/04/18 23:23 Sputum Gram Stain - Final 12/04/18 23:23 Sputum Sputum Culture - Final 12/04/18 12/04/18 12/04/18 01:20 01:20 07:29 Creatine Kinase 52 L 86 CK-MB (CK-2) 1.30 Troponin I 0.240 12/04/18 12/04/18 12/04/18 07:29 14:25 20:35 Creatine Kinase CK-MB (CK-2) 3.46 4.71 H Troponin I 1.840 1.280 0.922 12/05/18 12/05/18 13:05 18:29 Creatine Kinase CK-MB (CK-2) Troponin I 0.690 0.620 Impressions: Chest CT 12/04/18 12:23 IMPRESSION: Pulmonary fibrosis. UIP pattern. Ground-glass opacification in each lung suggesting chronic interstitial changes. Cannot exclude limited pneumonia in the right lower lobe. Small pleural effusions. Head CT 12/05/18 00:00 IMPRESSION: Involutional changes with mild chronic microvascular ischemia and with no acute intracranial imaging findings. EVIDENCE OF ACUTE STROKE: NO. Modified Barium Swallow 12/05/18 00:00 IMPRESSION: ASPIRATION WITH THIN BARIUM, LARYNGEAL PENETRATION WITH NECTAR THICK CONSISTENCY. PLEASE SEE SPEECH PATHOLOGIST REPORT FOR OTHER FINDINGS AND RECOMMENDATIONS. Chest X-Ray 12/06/18 13:15 IMPRESSION: Chronic lung changes with no acute cardiopulmonary findings. Assessment and Plan - Diagnosis (1) Sepsis Qualifiers: Sepsis type: sepsis due to unspecified organism Sepsis acute organ dysfunction status: with acute organ dysfunction Severe sepsis acute organ dysfunction type: acute renal failure Acute renal failure type: unspecified Severe sepsis shock status: without septic shock Qualified Code(s): A41.9 - Sepsis, unspecified organism; R65.20 - Severe sepsis without septic shock; N17.9 - Acute kidney failure, unspecified Is this a current diagnosis for this admission?: Yes Plan: Secondary to pneumonia and UTI. Blood cultures are negative so far. Sputum culture pending. Urine culture grew E. coli. Discontinue vancomycin. Continue cefepime. (2) Pneumonia Is this a current diagnosis for this admission?: Yes Plan: Improving. Continue IV antibiotics. Sputum culture pending. Pulmonology was also consulted as chest CT also showed possible pulmonary fibrosis and UIP pattern. (3) Acute delirium Is this a current diagnosis for this admission?: Yes Plan: Resolved. Secondary to sepsis. (4) Elevated troponin Is this a current diagnosis for this admission?: Yes Plan: Possibly type II MA from sepsis, pneumonia and acute renal failure. Discussed with patient's hospice admitting clerk, Dr. Candelario who does think this is more of demand ischemia. He does recommend inpatient stress testing prior to discharge. 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 (5) Acute nontraumatic kidney injury Is this a current diagnosis for this admission?: Yes Plan: Improved with IV fluids. (6) Urinary tract infection Qualifiers: Urinary tract infection type: acute cystitis Hematuria presence: without hematuria Qualified Code(s): N30.00 - Acute cystitis without hematuria Is this a current diagnosis for this admission?: Yes Plan: Continue IV antibiotics. Urine culture grew E. coli. (7) Anemia Is this a current diagnosis for this admission?: Yes - Time Time Spent with patient: 25-34 minutes
[2018-12-07] MEDS: ACETAMINOPHEN 325 MG TABLET PO PRN (19:26)
[2018-12-07] MEDS: LEVALBUTEROL HCL NEB 0.63 MG/3 ML AMPUL NEB PRN (21:06)
[2018-12-07] MEDS: ATORVASTATIN CALCIUM 40 MG TABLET PO SCH (21:50)
[2018-12-07] MEDS ORDERED: AZITHROMYCIN 250 MG TABLET PO SCH (22:00)
[2018-12-07 23:00] LABS: VANCOMYCIN,TROUGH 14.2 ug/mL (5.0-20.0)
[2018-12-08] MEDS: LEVOTHYROXINE SODIUM 0.025 MG TABLET PO SCH (05:10)
[2018-12-08] MEDS: LEVOTHYROXINE SODIUM 0.1 MG TABLET PO SCH (05:10)
[2018-12-08] MEDS ORDERED: (PENDING PHARMACY ID) (Levothyroxine Sodium [Synthroid] 125 MCG) PO SCH (06:00)
[2018-12-08] MEDS: ACETAMINOPHEN 325 MG TABLET PO PRN (08:31)
[2018-12-08] MEDS: LEVALBUTEROL HCL NEB 1.25 MG/3 ML AMPUL NEB SCH ×2 (08:36→16:48)
[2018-12-08] MEDS: ACETYLCYSTEINE 20% SOLN 800 MG/4 ML VIAL.NEB NEB SCH ×2 (08:36→19:47)
[2018-12-08] MEDS: FOLIC ACID 1 MG TABLET PO SCH (09:42)
[2018-12-08] MEDS: CLOPIDOGREL BISULFATE 75 MG TABLET PO SCH (09:42)
[2018-12-08] MEDS: METOPROLOL SUCCINATE 50 MG TAB.SR.24H PO SCH (09:42)
[2018-12-08] MEDS: FERROUS SULFATE 325 MG TABLET PO SCH (09:42)
[2018-12-08] MEDS: FAMOTIDINE 20 MG TABLET PO SCH ×2 (09:42→21:02)
[2018-12-08] MEDS: CEFEPIME 1 GM/D5W RTU 1 GM/50 ML RTUPB IV SCH (09:43)
[2018-12-08] MEDS: DOCUSATE SODIUM 100 MG CAPSULE PO SCH ×2 (09:44→17:54)
--- NOTE | 2018-12-08 15:44 | PDOC PROGRESS REPORT ---
Subjective Progress Note for:: 12/08/18 Subjective:: This is an 83 yr old male with a PMH of CAD with priro CABG, recent right endartectomy and bladder CA S/P BCG instillation who presented with fever, coughing and malaise. He was found to have a UTI and pneumonia chest x-ray. He was started on IV antibiotics. 12/05: Patient did have up trending of his troponin yesterday. He did not have any chest pain. He reported his shortness of breath was better. No acute event overnight. He remains chest pain-free. He did report having dysuria at home. 12/06: Per RN, patient reportedly desaturated to 85% last night and supplemental O2 was increased to 5 L via nasal cannula. It was unclear if he was wearing his CPAP machine. Patient denies any acute complaints. He denies chest pain or shortness of breath. He continues to improve. Will try to wean down on oxygen today. Will consult PT to try to increase ambulation today. Stress test was rescheduled for tomorrow. 12/07: He denies acute complaints. Denies chest pain or SOB. 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 12/08: No acute event overnight. He continues to improve. He still requires supplemental O2. He does qualify for home O2. He likely has chronic respiratory failure from pulmonary fibrosis noted on CT with his recent pneumonia increasing his O2 requirement. He is returning to his baseline. Reason For Visit: SIRS, POSSIBLE PNEUMONIA, POSSIBLE URINARY TRACT Physical Exam Vital Signs: Temp Pulse Resp BP Pulse Ox 97.5 F 110 H 18 150/93 H 91 L 12/08/18 04:00 12/08/18 08:36 12/08/18 08:36 12/08/18 04:00 12/08/18 08:36 Intake & Output 12/07/18 12/08/18 12/09/18 06:59 06:59 06:59 Intake Total 1731 1292 50 Output Total 1425 1600 Balance 306 -308 50 Weight 163 lb 9.328 oz 157 lb 6.561 oz General appearance: PRESENT: no acute distress, well-developed, well-nourished Head exam: PRESENT: atraumatic, normocephalic Eye exam: PRESENT: conjunctiva pink, EOMI, PERRLA. ABSENT: scleral icterus Ear exam: PRESENT: normal external ear exam Mouth exam: PRESENT: moist, tongue midline Neck exam: ABSENT: carotid bruit, JVD, lymphadenopathy, thyromegaly Respiratory exam: PRESENT: rhonchi. ABSENT: rales, wheezes Cardiovascular exam: PRESENT: RRR. ABSENT: diastolic murmur, rubs, systolic murmur Pulses: PRESENT: normal dorsalis pedis pul GI/Abdominal exam: PRESENT: normal bowel sounds, soft. ABSENT: distended, gu arding, mass, organolmegaly, rebound, tenderness Rectal exam: PRESENT: deferred Neurological exam: PRESENT: alert, awake, oriented to person, oriented to place, oriented to time, oriented to situation, CN II-XII grossly intact. ABSENT: motor sensory deficit Results Laboratory Results: 12/07/18 05:49 12/07/18 05:49 12/04/18 12/04/18 12/04/18 01:20 01:20 07:29 Creatine Kinase 52 L 86 CK-MB (CK-2) 1.30 Troponin I 0.240 12/04/18 12/04/18 12/04/18 07:29 14:25 20:35 Creatine Kinase CK-MB (CK-2) 3.46 4.71 H Troponin I 1.840 1.280 0.922 12/05/18 12/05/18 13:05 18:29 Creatine Kinase CK-MB (CK-2) Troponin I 0.690 0.620 Impressions: Chest CT 12/04/18 12:23 IMPRESSION: Pulmonary fibrosis. UIP pattern. Ground-glass opacification in each lung suggesting chronic interstitial changes. Cannot exclude limited pneumonia in the right lower lobe. Small pleural effusions. Head CT 12/05/18 00:00 IMPRESSION: Involutional changes with mild chronic microvascular ischemia and with no acute intracranial imaging findings. EVIDENCE OF ACUTE STROKE: NO. Modified Barium Swallow 12/05/18 00:00 IMPRESSION: ASPIRATION WITH THIN BARIUM, LARYNGEAL PENETRATION WITH NECTAR THICK CONSISTENCY. PLEASE SEE SPEECH PATHOLOGIST REPORT FOR OTHER FINDINGS AND RECOMMENDATIONS. Chest X-Ray 12/06/18 13:15 IMPRESSION: Chronic lung changes with no acute cardiopulmonary findings. Assessment and Plan - Diagnosis (1) Sepsis Qualifiers: Sepsis type: sepsis due to unspecified organism Sepsis acute organ dysfunction status: with acute organ dysfunction Severe sepsis acute organ dysfunction type: acute renal failure Acute renal failure type: unspecified Severe sepsis shock status: without septic shock Qualified Code(s): A41.9 - Sepsis, unspecified organism; R65.20 - Severe sepsis without septic shock; N17.9 - Acute kidney failure, unspecified Is this a current diagnosis for this admission?: Yes Plan: Secondary to pneumonia and UTI. Blood cultures are negativ. Urine culture grew E. coli. Discontinue vancomycin. Continue cefepime. 12/08: DC azithromycin and cefepime. Switch to PO Augmentin. (2) Pneumonia Is this a current diagnosis for this admission?: Yes Plan: As per number 1. Pulmonology was also consulted as chest CT also showed possible pulmonary fibrosis and UIP pattern. (3) Acute delirium Is this a current diagnosis for this admission?: Yes Plan: Resolved. Secondary to sepsis. (4) Elevated troponin Is this a current diagnosis for this admission?: Yes Plan: Possibly type II [place] from sepsis, pneumonia and acute renal failure. Discussed w [facility] patient's leathersmith, Dr. Candelario who does think this is more of demand ischemia. He does recommend inpatient stress testing prior to discharge. 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 (5) Acute nontraumatic kidney injury Is this a current diagnosis for this admission?: Yes Plan: Resolved with IV fluids. (6) Urinary tract infection Qualifiers: Urinary tract infection type: acute cystitis Hematuria presence: without hematuria Qualified Code(s): N30.00 - Acute cystitis without hematuria Is this a current diagnosis for this admission?: Yes Plan: Continue IV antibiotics. Urine culture grew E. coli. (7) Anemia Is this a current diagnosis for this admission?: Yes - Time Time Spent with patient: 25-34 minutes
[2018-12-08] MEDS: LEVALBUTEROL HCL NEB 0.63 MG/3 ML AMPUL NEB PRN (19:47)
[2018-12-08] MEDS: AMOXICILLIN TR/POT CLAVULANATE 500-125 MG TAB PO SCH (21:02)
[2018-12-08] MEDS: ATORVASTATIN CALCIUM 40 MG TABLET PO SCH (21:02)
[2018-12-09] MEDS: LEVALBUTEROL HCL NEB 1.25 MG/3 ML AMPUL NEB SCH ×3 (00:37→15:40)
[2018-12-09 05:10] LABS: ABSOLUTE BASOPHILS # (AUTO) 0.1 10^3/uL (0.0-0.2); ABSOLUTE EOSINOPHILS # (AUTO) 0.3 10^3/uL (0.0-0.6); ABSOLUTE LYMPHOCYTES (AUTO) 1.1 10^3/uL (0.5-4.7); ABSOLUTE MONOCYTES (AUTO) 1.1 10^3/uL (0.1-1.4); ABSOLUTE NEUT (AUTO) 5.5 10^3/uL (1.7-8.2); BASOPHILS % (AUTO) 1.5 % (0-2); EOSINOPHILS % (AUTO) 3.6 % (0-6); HEMATOCRIT 25.7 % (37.9-51.0); HEMOGLOBIN 8.8 g/dL (13.5-17.0); LYMPHOCYTES % (AUTO) 13.8 % (13-45); MEAN CORPUSCULAR HEMOGLOBIN 29.9 pg (27.0-33.4); MEAN CORPUSCULAR HGB CONC 34.3 g/dL (32.0-36.0); MEAN CORPUSCULAR VOLUME 87 fl (80-97); MONOCYTES % (AUTO) 13.7 % (3-13); PLATELET COUNT 353 10^3/uL (150-450); RED BLOOD COUNT 2.95 10^6/uL (4.35-5.55); RED CELL DISTRIBUTION WIDTH 16.8 % (11.5-14.0); SEGMENTED NEUTROPHILS % (AUTO) 67.4 % (42-78); TOTAL CELLS COUNTED % (AUTO) 100 %; WHITE BLOOD COUNT 8.1 10^3/uL (4.0-10.5)
[2018-12-09 05:22] LABS: BLOOD UREA NITROGEN 13 mg/dL (7-20); CARBON DIOXIDE 29 mmol/L (22-30); CHLORIDE 102 mmol/L (98-107); GLUCOSE 100 mg/dL (75-110)
[2018-12-09] MEDS: LEVOTHYROXINE SODIUM 0.025 MG TABLET PO SCH (05:26)
[2018-12-09] MEDS: AMOXICILLIN TR/POT CLAVULANATE 500-125 MG TAB PO SCH ×3 (05:26→21:52)
[2018-12-09] MEDS: LEVOTHYROXINE SODIUM 0.1 MG TABLET PO SCH (05:26)
[2018-12-09 05:37] LABS: ANION GAP 4 (5-19)
[2018-12-09] MEDS: ACETYLCYSTEINE 20% SOLN 800 MG/4 ML VIAL.NEB NEB SCH ×2 (07:59→19:46)
[2018-12-09] MEDS: METOPROLOL SUCCINATE 50 MG TAB.SR.24H PO SCH (09:21)
[2018-12-09] MEDS: FERROUS SULFATE 325 MG TABLET PO SCH (09:21)
[2018-12-09] MEDS: FOLIC ACID 1 MG TABLET PO SCH (09:21)
[2018-12-09] MEDS: DOCUSATE SODIUM 100 MG CAPSULE PO SCH ×2 (09:21→17:07)
[2018-12-09] MEDS: CLOPIDOGREL BISULFATE 75 MG TABLET PO SCH (09:21)
[2018-12-09] MEDS: FAMOTIDINE 20 MG TABLET PO SCH ×2 (09:21→21:52)
[2018-12-09] MEDS: ENOXAPARIN SODIUM INJ 60 MG/0.6 ML DISP.SYRIN SUBCUT SCH ×2 (09:22→21:52)
--- NOTE | 2018-12-09 15:00 | PDOC PROGRESS REPORT ---
Subjective Progress Note for:: 12/09/18 Subjective:: This is an 83 yr old male with a PMH of CAD with priro CABG, recent right endartectomy and bladder CA S/P BCG instillation who presented with fever, coughing and malaise. He was found to have a UTI and pneumonia chest x-ray. He was started on IV antibiotics. 12/05: Patient did have up trending of his troponin yesterday. He did not have any chest pain. He reported his shortness of breath was better. No acute event overnight. He remains chest pain-free. He did report having dysuria at home. 12/06: Per RN, patient reportedly desaturated to 85% last night and supplemental O2 was increased to 5 L via nasal cannula. It was unclear if he was wearing his CPAP machine. Patient denies any acute complaints. He denies chest pain or shortness of breath. He continues to improve. Will try to wean down on oxygen today. Will consult PT to try to increase ambulation today. Stress test was rescheduled for tomorrow. 12/07: He denies acute complaints. Denies chest pain or SOB. 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 12/08: No acute event overnight. He continues to improve. He still requires supplemental O2. He does qualify for home O2. He likely has chronic respiratory failure from pulmonary fibrosis noted on CT with his recent pneumonia increasing his O2 requirement. He is returning to his baseline. 12/09: He denies acute complaints. Denies SOb or chest pain. Patient is medically cleared and stable for discharge. Unfortunately, his home O2 has not been delivered yet. Reason For Visit: SIRS, POSSIBLE PNEUMONIA, POSSIBLE URINARY TRACT Physical Exam Vital Signs: Temp Pulse Resp BP Pulse Ox 98 F 80 20 130/55 H 97 12/09/18 11:06 12/09/18 11:06 12/09/18 11:06 12/09/18 11:06 12/09/18 11:06 Intake & Output 12/08/18 12/09/18 12/10/18 06:59 06:59 06:59 Intake Total 1292 982 120 Output Total 1600 2325 550 Balance -308 -1343 -430 Weight 157 lb 6.561 oz 156 lb 8.451 oz General appearance: PRESENT: no acute distress, well-developed, well-nourished Head exam: PRESENT: atraumatic, normocephalic Eye exam: PRESENT: conjunctiva pink, EOMI, PERRLA. ABSENT: scleral icterus Ear exam: PRESENT: normal external ear exam Mouth exam: PRESENT: moist, tongue midline Neck exam: ABSENT: carotid bruit, JVD, lymphadenopathy, thyromegaly Respiratory exam: PRESENT: clear to auscultation estela. ABSENT: rales, rhonchi, wheezes Pulses: PRESENT: normal dorsalis pedis pul Rectal exam: PRESENT: deferred Neurological exam: PRESENT: alert, awake, oriented to person, oriented to place, oriented to time, oriented to situation, CN II-XII grossly intact. ABSENT: motor sensory deficit Results Laboratory Results: 12/09/18 04:44 12/09/18 04:44 12/09/18 12/09/18 04:44 04:44 WBC 8.1 RBC 2.95 L Hgb 8.8 L Hct 25.7 L MCV 87 MCH 29.9 MCHC 34.3 RDW 16.8 H Plt Count 353 Seg Neutrophils % 67.4 Lymphocytes % 13.8 Monocytes % 13.7 H Eosinophils % 3.6 Basophils % 1.5 Absolute Neutrophils 5.5 Absolute Lymphocytes 1.1 Absolute Monocytes 1.1 Absolute Eosinophils 0.3 Absolute Basophils 0.1 Sodium 134.6 L Potassium 4.0 Chloride 102 Carbon Dioxide 29 Anion Gap 4 L BUN 13 Creatinine 1.31 H Est GFR ( Amer) > 60 Est GFR (Non-Af Amer) 52 L Glucose 100 Calcium 8.0 L 12/04/18 02:54 Blood Blood Culture - Final NO GROWTH IN 5 DAYS 12/04/18 01:20 Blood Blood Culture - Final NO GROWTH IN 5 DAYS 12/04/18 12/04/18 12/04/18 01:20 01:20 07:29 Creatine Kinase 52 L 86 CK-MB (CK-2) 1.30 Troponin I 0.240 12/04/18 12/04/18 12/04/18 07:29 14:25 20:35 Creatine Kinase CK-MB (CK-2) 3.46 4.71 H Troponin I 1.840 1.280 0.922 12/05/18 12/05/18 13:05 18:29 Creatine Kinase CK-MB (CK-2) Troponin I 0.690 0.620 Impressions: Chest CT 12/04/18 12:23 IMPRESSION: Pulmonary fibrosis. UIP pattern. Ground-glass opacification in each lung suggesting chronic interstitial changes. Cannot exclude limited pneumonia in the right lower lobe. Small pleural effusions. Head CT 12/05/18 00:00 IMPRESSION: Involutional changes with mild chronic microvascular ischemia and with no acute intracranial imaging findings. EVIDENCE OF ACUTE STROKE: NO. Modified Barium Swallow 12/05/18 00:00 IMPRESSION: ASPIRATION WITH THIN BARIUM, LARYNGEAL PENETRATION WITH NECTAR THICK CONSISTENCY. PLEASE SEE SPEECH PATHOLOGIST REPORT FOR OTHER FINDINGS AND RECOMMENDATIONS. Chest X-Ray 12/06/18 13:15 IMPRESSION: Chronic lung changes with no acute cardiopulmonary findings. Assessment and Plan - Diagnosis (1) Sepsis Qualifiers: Sepsis type: sepsis due to unspecified organism Sepsis acute organ dysfunction status: with acute organ dysfunction Severe sepsis acute organ dysfunction type: acute renal failure Acute renal failure type: unspecified Severe sepsis shock status: without septic shock Qualified Code(s): A41.9 - Sepsis, unspecified organism; R65.20 - Severe sepsis without septic shock; N17.9 - Acute kidney failure, unspecified Is this a current diagnosis for this admission?: Yes Plan: Secondary to pneumonia and UTI. Blood cultures are negativ. Urine culture grew E. coli. Discontinue vancomycin. Continue cefepime. 12/08: DC azithromycin and cefepime. Switch to PO Augmentin. (2) Pneumonia Is this a current diagnosis for this admission?: Yes Plan: As per number 1. Pulmonology was also consulted as chest CT also showed possible pulmonary fibrosis and UIP pattern. (3) Acute delirium Is this a current diagnosis for this admission?: Yes Plan: Resolved. Secondary to sepsis. Patient eason shave occasional sundowning at night. (4) Elevated troponin Is this a current diagnosis for this admission?: Yes Plan: Possibly type II VT from sepsis, pneumonia and acute renal failure. Discussed with patient's licensed master social worker, Dr. Candelario who does think this is more of demand ischemia. He does recommend inpatient stress testing prior to discharge. 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 (5) Acute nontraumatic kidney injury Is this a current diagnosis for this admission?: Yes Plan: Resolved with IV fluids. (6) Urinary tract infection Qualifiers: Urinary tract infection type: acute cystitis Hematuria presence: without hematuria Qualified Code(s): N30.00 - Acute cystitis without hematuria Is this a current diagnosis for this admission?: Yes Plan: Continue Augmentin. Urine culture grew E. coli. (7) Anemia Is this a current diagnosis for this admission?: Yes Plan: He received a unit of pRBC. Likely iron deficiency related. Also started on iron supplement. - Time Time Spent with patient: 25-34 minutes
[2018-12-09] MEDS: LEVALBUTEROL HCL NEB 0.63 MG/3 ML AMPUL NEB PRN (19:46)
--- NOTE | 2018-12-09 21:26 | DRAGON STRESS TEST REPORT ---
Intravenous Lexiscan Cardiolite stress test using single photon emmision computerized tomography. Date of procedure: 12/07/2018. Ordering Provider: Dr. Jorge Kyle. Patient's status: In Patient. Indication: Chest pain the patient with history of coronary artery disease and history of coronary bypass graft surgery.. Coronary risk factors: Age, diabetes mellitus, and dyslipidemia. Resting EKG: Sinus Rhythm. EKG within normal limits. Stress EKG: No changes of ischemia. The patient has no chest pain or discomfort, and there were no arrhythmias seen. Reason for termination: Protocol. Conclusions: Normal EKG and hemodynamic response to IV Lexiscan. Nuclear data: At rest the patient was given 10.28 millicuries of technetium 99m sestamibi injected intravenously. As per protocol rest non gated SPECT images were obtained. Subsequently the patient was given intravenous Lexiscan at a dose of 0.4 mg in 5 mL intravenously, followed by flush with normal saline. Subsequently the stress dose of 32.7 millicuries of technetium 99m sestamibi was injected intravenously. As per protocol stress gated images were obtained. Nuclear interpretation: Review of images showed that there is a mild perfusion defect involving the inferior wall in both rest and stress images. This inferior wall had decreased motion contraction and thickening consistent with a prior myocardial infarction. The rest of the segments of the myocardium had normal perfusion at rest, and normal perfusion post stress with IV Lexiscan. The rest of the segments of the myocardium had normal motion, contraction, and thickening by gated study. T. I D. ratio was normal at 1.13. There is no transient ischemic dilatation of the left ventricle. Computer read rest, and stress left ventricular ejection fraction were 51 %, and 50 %, respectively. Visually both the stress and rest ejection fractions were normal, and greater than 55%. Conclusion: 1. There is no scintigraphic evidence of Lexiscan induced myocardial ischemia. 2. There is scintigraphic evidence of mild myocardial infarction/scar involving the inferior wall.. Recommendations: 1. Correlate clinically. 2. Aggressive risk factor modification, and treating the underlying co- morbidities. [facility]
[2018-12-09] MEDS: ATORVASTATIN CALCIUM 40 MG TABLET PO SCH (21:52)
[2018-12-09] MEDS: ACETAMINOPHEN 325 MG TABLET PO PRN (21:56)
[2018-12-10] MEDS: LEVALBUTEROL HCL NEB 1.25 MG/3 ML AMPUL NEB SCH ×2 (00:18→08:05)
[2018-12-10] MEDS: LEVOTHYROXINE SODIUM 0.025 MG TABLET PO SCH (05:09)
[2018-12-10] MEDS: LEVOTHYROXINE SODIUM 0.1 MG TABLET PO SCH (05:09)
[2018-12-10] MEDS: AMOXICILLIN TR/POT CLAVULANATE 500-125 MG TAB PO SCH ×2 (05:09→13:44)
[2018-12-10] MEDS ORDERED: METHOTREXATE SODIUM 2.5 MG TABLET PO SCH (08:00)
[2018-12-10] MEDS: ACETYLCYSTEINE 20% SOLN 800 MG/4 ML VIAL.NEB NEB SCH (08:05)
[2018-12-10] MEDS: METOPROLOL SUCCINATE 50 MG TAB.SR.24H PO SCH (10:05)
[2018-12-10] MEDS: CLOPIDOGREL BISULFATE 75 MG TABLET PO SCH (10:05)
[2018-12-10] MEDS: FAMOTIDINE 20 MG TABLET PO SCH (10:06)
[2018-12-10] MEDS: FERROUS SULFATE 325 MG TABLET PO SCH (10:06)
[2018-12-10] MEDS: DOCUSATE SODIUM 100 MG CAPSULE PO SCH (10:06)
[2018-12-10] MEDS: FOLIC ACID 1 MG TABLET PO SCH (10:06)
[2018-12-10] MEDS: ENOXAPARIN SODIUM INJ 60 MG/0.6 ML DISP.SYRIN SUBCUT SCH (10:06)
[2018-12-10 12:12] VITALS: BP 139/75
--- NOTE | 2018-12-10 16:58 | PDOC DISCHARGE SUMMARY ---
General - Admit/Disc Date/PCP Admission Date/Primary Care Provider: 12/04/18 03:19 MEMO ENGLISH III, MD Discharge Date: 12/10/18 - Discharge Diagnosis (1) Sepsis Is this a current diagnosis for this admission?: Yes (2) Pneumonia Is this a current diagnosis for this admission?: Yes (3) Acute delirium Is this a current diagnosis for this admission?: Yes (4) Elevated troponin Is this a current diagnosis for this admission?: Yes (5) Acute nontraumatic kidney injury Is this a current diagnosis for this admission?: Yes (6) Urinary tract infection Is this a current diagnosis for this admission?: Yes (7) Anemia Is this a current diagnosis for this admission?: Yes - Additional Information Resuscitation Status: Full Code Discharge Diet: As Tolerated Discharge Activity: Activity As Tolerated Prescriptions: Amox Tr/Potassium Clavulanate [Augmentin "500" Tablet] 1 tab PO Q8 2 Days #6 tablet Atorvastatin Calcium [Lipitor 20 mg Tablet] 20 mg PO QHS #30 tablet Home Medications: Carisoprodol [Soma] 350 mg PO TID 12/04/18 Citalopram Hydrobromide [Celexa 10 mg Tablet] 10 mg PO DAILY 12/04/18 Clopidogrel Bisulfate [Plavix 75 mg Tablet] 75 mg PO DAILY 12/04/18 Folic Acid [Folvite 1 mg Tablet] 1 mg PO DAILY 12/04/18 Levothyroxine Sodium [Synthroid] 125 mcg PO Q6AM 12/04/18 Lisinopril/Hydrochlorothiazide [Lisinopril-Hctz 20-12.5 mg Tab] 1 each PO DAILY 12/04/18 Methotrexate Sodium [Rheumatrex 2.5 mg Tablet] 2.5 mg PO .WEEKLY 12/04/18 Metoprolol Succinate [Toprol XL 100 mg Tablet] 100 mg PO DAILY 12/04/18 Amox Tr/Potassium Clavulanate [Augmentin "500" Tablet] 1 tab PO Q8 2 Days #6 tablet 12/09/18 Atorvastatin Calcium [Lipitor 20 mg Tablet] 20 mg PO QHS #30 tablet 12/09/18 History of Present Illness History of Present Illness: Admitting hospitalist's H&P: SANTY COVARRUBIAS is a 83 year old male who presented to the emergency room with acute fever. Patient's indicates that he woke up feeling weak and suffering from malaise on the morning of 12/03/2018. He continued not feeling well throughout the day and became gradually more confused, experienced occasional coughing and and seemed to be hallucinating by the evening. EMS was called and found patient to have a fever of 102.8 F and a prehospital rapid lactic acid level of greater than 6. The patient is confused/delirious secondary to his acute illness and unable to participate in his medical history at this time. The denies prior similar episodes. She offers the recent history of surgery performed in [facility] (right carotid endarterectomy) approximately 2 weeks ago and a treatment for bladder cancer involving the installation of BCG in his bladder via May catheter last week as to possible sources of infection that may have contributed to his current status. In the emergency room he was found to have a normal white blood count, a normal serum lactate, an anemia with a hemoglobin of 8.0, an elevated creatinine at 1.74 (approximately double his baseline), a urinalysis consistent with bacterial cystitis and a chest x-ray showing a possible pneumonia. Patient was kilpatrick bsequently admitted to the hospital for further evaluation treatment. Hospital Course Hospital Course: This is an 83 yr old male with a PMH of CAD with priro CABG, recent right endartectomy and bladder CA S/P BCG instillation who presented with fever, coughing and malaise. He was found to have a UTI and pneumonia chest x-ray. He was started on IV antibiotics. Elevated troponin: Patient did not have any chest pain or new EKG changes. This was likely demand ischemia. However after discussing with patient's maintainer operator in [place], they recommended inpatient stress testing. This was pursued and came back remarkable for a mild possible old infarct/scar in the inferior wall with no reversible ischemia. Recommendation is to optimize medical management. Sepsis: Secondary to pneumonia and UTI. Blood cultures are negative. Urine culture grew E. coli. He was treated with IV vancomycin and cefepime. He will be discharged for 2 more days of Augmentin. Pneumonia: Pulmonology was also consulted as chest CT also showed possible pulmonary fibrosis and UIP pattern. He did qualify for home O2. He likely has chronic respiratory failure from pulmonary fibrosis noted on CT with his recent pneumonia increasing his O2 requirement. He felt he is at his baseline now. He will closely follow-up with pulmonology. EBENEZER: This resolved with IV fludis. Physical Exam Vital Signs: Temp Pulse Resp BP Pulse Ox 99.2 F 79 20 139/75 H 100 12/10/18 14:17 12/10/18 14:17 12/10/18 14:17 12/10/18 14:17 12/10/18 14:17 Intake & Output 12/09/18 12/10/18 12/11/18 06:59 06:59 06:59 Intake Total 982 1330 475 Output Total 2325 1650 Balance -1343 -320 475 Weight 156 lb 8.451 oz 153 lb 3.54 oz General appearance: PRESENT: no acute distress, well-developed, well-nourished Head exam: PRESENT: atraumatic, normocephalic Eye exam: PRESENT: conjunctiva pink, EOMI, PERRLA. ABSENT: scleral icterus Ear exam: PRESENT: normal external ear exam Mouth exam: PRESENT: moist, tongue midline Neck exam: ABSENT: carotid bruit, JVD, lymphadenopathy, thyromegaly Respiratory exam: PRESENT: clear to auscultation estela. ABSENT: rales, rhonchi, wheezes Cardiovascular exam: PRESENT: RRR. ABSENT: diastolic murmur, rubs, systolic murmur Pulses: PRESENT: normal dorsalis pedis pul GI/Abdominal exam: PRESENT: normal bowel sounds, soft. ABSENT: distended, guarding, mass, organolmegaly, rebound, tenderness Rectal exam: PRESENT: deferred Neurological exam: PRESENT: alert, awake, oriented to person, oriented to place, oriented to time, oriented to situation, CN II-XII grossly intact. ABSENT: motor sensory deficit Results Laboratory Results: 12/09/18 04:44 12/09/18 04:44 12/04/18 12/04/18 12/04/18 01:20 01:20 07:29 Creatine Kinase 52 L 86 CK-MB (CK-2) 1.30 Troponin I 0.240 12/04/18 12/04/18 12/04/18 07:29 14:25 20:35 Creatine Kinase CK-MB (CK-2) 3.46 4.71 H Troponin I 1.840 1.280 0.922 12/05/18 12/05/18 13:05 18:29 Creatine Kinase CK-MB (CK-2) Troponin I 0.690 0.620 Impressions: Chest CT 12/04/18 12:23 IMPRESSION: Pulmonary fibrosis. UIP pattern. Ground-glass opacification in each lung suggesting chronic interstitial changes. Cannot exclude limited pneumonia in the right lower lobe. Small pleural effusions. Head CT 12/05/18 00:00 IMPRESSION: Involutional changes with mild chronic microvascular ischemia and with no acute intracranial imaging findings. EVIDENCE OF ACUTE STROKE: NO. Modified Barium Swallow 12/05/18 00:00 IMPRESSION: ASPIRATION WITH THIN BARIUM, LARYNGEAL PENETRATION WITH NECTAR THICK CONSISTENCY. PLEASE SEE SPEECH PATHOLOGIST REPORT FOR OTHER FINDINGS AND RECOMMENDATIONS. Chest X-Ray 12/06/18 13:15 IMPRESSION: Chronic lung changes with no acute cardiopulmonary findings. Qualifiers - * PATIENT BEING DISCHARGED WITH ANY OF THE FOLLOWING DIAGNOSIS: No Acute Heart Failure - Is this a Heart Failure Patient?: No LVEF < 40%?: No- if no continue to question #3 3. Anticoagulant therapy for permanect/persistent/paraoxysmal Afib or Aflutter: N/A
== END 2018-12-10 14:35 | disposition home health service (06) | DRG 871 ==
LOC: ER 01:14 → EH 03:19 → 4S 04:50
PROVIDERS: ADMIT Emergency Medicine; ATTEND Emergency Medicine
PROC: 30233N1 Transfusion of Nonautologous Red Blood Cells into Peripheral Vein, Percutaneous Approach (ICD-10-PCS; principal; 2018-12-06)
DX: A41.9 Sepsis, unspecified organism (principal); J18.9 Pneumonia, unspecified organism; N17.9 Acute kidney failure, unspecified; N39.0 Urinary tract infection, site not specified; D64.9 Anemia, unspecified; I25.10 Atherosclerotic heart disease of native coronary artery without angina pectoris; B96.20 Unspecified Escherichia coli [E. coli] as the cause of diseases classified elsewhere; J84.10 Pulmonary fibrosis, unspecified; C67.9 Malignant neoplasm of bladder, unspecified; R79.89 Other specified abnormal findings of blood chemistry; R41.0 Disorientation, unspecified; I48.91 Unspecified atrial fibrillation; E78.5 Hyperlipidemia, unspecified; I73.9 Peripheral vascular disease, unspecified; Z95.1 Presence of aortocoronary bypass graft; E03.9 Hypothyroidism, unspecified; N40.0 Benign prostatic hyperplasia without lower urinary tract symptoms; M06.9 Rheumatoid arthritis, unspecified; Z82.49 Family history of ischemic heart disease and other diseases of the circulatory system; Z88.2 Allergy status to sulfonamides; Z79.899 Other long term (current) drug therapy; Z86.73 Personal history of transient ischemic attack (TIA), and cerebral infarction without residual deficits; Z87.440 Personal history of urinary (tract) infections; Z87.891 Personal history of nicotine dependence
CPT/HCPCS: 36415; 36430; 51702; 70450; 71045; 71250; 74230; 78452; 80048; 80053; 80202; 81001; 82550; 82553; 82607; 82728; 82746; 82803; 82962; 83036; 83540; 83550; 83605; 83735; 84439; 84481; 84484; 85025; 85027; 85045; 85610; 86850; 86900; 86901; 86920; 87040; 87070; 87086; 87088; 87186; 87205; 87493; 93005; 93010; 93017; 94660; 94799; 96360; 96372; 99291; A9500; J0456; J0692; J1644; J1650; J2060; J2185; J2785; J3230; J3370; J3490; J7060; J7120; J7614; J8610; P9016; Q9969